=== PATIENT | female | born 1995 | race Caucasian/White ===

== ENCOUNTER 2017-07-01 20:17 | Emergency (ER) | payer MEDICAID, SELFPAY ==
[2017-07-01 20:37] VITALS: BP 137/99; PULSE 92; RESP 20; TEMP 36.8; O2SAT 97; BMI 30.9
--- NOTE | 2017-07-01 20:43 | XR_ITS ---
XR chest 2V INDICATION: Chest pain COMPARISON: None available FINDINGS: The cardiovascular structures are unremarkable. No mediastinal shift or hilar mass is evident. The lungs are well expanded and clear bilaterally. The costophrenic sulci are sharp. No significant bony anomalies are apparent. IMPRESSION: Negative chest.
--- NOTE | 2017-07-01 20:47 | HMH.EDCP ---
ED Disposition Clinical Impression: Pleurisy Disposition: Home, Self-Care Condition on Discharge: Good Instructions: DI for Pleurisy Additional Instructions: Please take Motrin every 6 hours as needed for chest pain. If not better follow-up with Dr Tom within 2 days. Referrals: Pritesh Tom MD [Staff Physician] - Forms: Work/School Release Time of Disposition: 22:04 - Critical Care Critical Care Time: No Attestation: On 07/01/17, the high probability of a clinically significant, sudden or life threatening deterioration of the following system(s) required my full and direct attention, intervention and personal management. The time I documented below is in addition to time spent performing reported procedures but includes the following listed in this critical care notation. Medical Decision Making - Medical Records Medical records reviewed: Yes: I reviewed the patient's medical records. - Edu Inquiry Pt receiving controlled substance: No Vital Signs: 07/01/17 20:37 07/01/17 22:13 Temperature 98.3 F 98.7 F Temperature Source Oral Oral Pulse Rate 85 Pulse Rate [Right Radial] 92 H Respiratory Rate 20 20 Blood Pressure 132/98 Blood Pressure [Right Arm] 137/99 Blood Pressure Mean [Right Arm] 111 Blood Pressure Position Sitting 02 Sat by Pulse Oximetry 97 - Lab Data Lab results reviewed: Yes: I reviewed the patient's lab results. Lab Results 07/01/17 20:40: Urine Color Yellow, Urine Appearance Clear, Urine pH 6.0, Ur Specific [place] >= 1.030, Urine Protein Negative, Urine Glucose (UA) Negative, Urine Ketones Negative, Urine Blood 1+, Urine Nitrate Negative, Urine Bilirubin Negative, Urine Urobilinogen 0.2, Ur Leukocyte Esterase Negative, Urine RBC 5-10, Urine WBC 3-5, Ur Squamous Epith Cells 5-10, Amorphous Sediment Trace, Urine Mucus 4+ 07/01/17 20:40: WBC 11.2, RBC 4.82, Hgb 13.2, Hct 40.4, MCV 83.8, MCH 27.5, MCHC 32.8, RDW 13.2, Plt Count 314, MPV 7.9, Neut % (Auto) 56.8, Lymph % (Auto) 29.5, [place] % (Auto) 5.7, Eos % (Auto) 7.5, Baso % (Auto) 0.5, Neut # (Auto) 6.4, Lymph # (Auto) 3.3, [place] # (Auto) 0.6, Eos # (Auto) 0.8 H, Baso # (Auto) 0.1 07/01/17 20:40: Urine HCG, Qual Negative 07/01/17 20:40: Sodium 143, Potassium 3.6, Chloride 106, Carbon Dioxide 28, Anion Gap 12.6, BUN 11, Creatinine 0.85, Estimated Creat Clear 136, Estimated GFR 85, Est GFR ( Amer) 103, Glucose 91, Calcium 8.8, Total Bilirubin 0.8, AST 13 L, ALT 23, Alkaline Phosphatase 89, Total Creatine Kinase 128, CK-MB (CK-2) 0.8, CK-MB (CK-2) Rel Index 0.6, Troponin I < 0.02, Total Protein 7.5, Albumin 4.0, Globulin 3.5 H, Albumin/Globulin Ratio 1.1 07/01/17 20:40: Urine Opiates Screen Negative, Ur Barbituates Screen Negative, Ur Phencyclidine Scrn Negative, Ur Amphetamines Screen Negative, U Methamphetamines Scrn Negative, U Benzodiazepines Scrn Negative, Urine Cocaine Screen Negative, U Marijuana (THC) Screen Negative Result diagrams: 07/01/17 20:40 07/01/17 20:40 Orders (Tests/Meds): ORDERS Category Date Time Status Chest XR 2 view (NOT portable) [XR chest 2V] Stat Exams 07/01/17 20:43 Taken - Radiology Data #1 Image(s): Chest Image Reviewed: Yes I reviewed the patient's radiology results, Yes I reviewed the patient's radiology image, Yes I discussed the image results w/the radiologist Preliminary Findings: Normal/NAD - ECG Data Tracing #1 I reviewed this ECG and interpreted as documented below: Heart rate 88, no acute ischemic changes ECG normal with no acute: arrhythmias, ischemia, conduction abnormalities, chamber hypertrophy Normal Sinus Rhythm: Yes ECG compared to prior tracings: there are no prior tracings available for comparison - Reevaluation(s) Time: 22:30 Reevaluation #1: Upon reevaluation patient appears medically stable, no acute distress, denying any further complaints, but insisting that she will need a work excuse for today. Advise patient to take [id number]
[2017-07-01 20:52] LABS: Microscopic, Urine URINE MICROSCOPIC (MICROSCOPIC)
[2017-07-01 20:56] LABS: Basophils # 0.1 K/mm3 (0-0.2); Basophils % 0.5 % (0.1-2.0); Eosinophils # 0.8 K/mm3 (0.0-0.4); Eosinophils % 7.5 % (0.1-12.0); Hematocrit 40.4 % (37.0-47.0); Hemoglobin 13.2 g/dL (12.2-16.2); Lymphocytes # 3.3 K/mm3 (0.7-4.5); Lymphocytes % 29.5 K/mm3 (10-50); Mean Corpuscular HGB Conc 32.8 g/dL (31.8-35.4); Mean Corpuscular Hemoglobin 27.5 pg (27.0-31.2); Mean Corpuscular Volume 83.8 fl (81-99); Mean Platelet Volume 7.9 fl (7.4-10.4); Monocytes # 0.6 K/mm3 (0.1-1.0); Monocytes % 5.7 % (1.7-9.3); Neutrophils # 6.4 K/mm3 (1.8-7.8); Neutrophils % 56.8 % (37.0-80.0); Platelet Count 314 K/mm3 (142-424); Red Blood Count 4.82 M/mm3 (4.20-5.40); Red Cell Distribution Width 13.2 % (11.5-17.5); White Blood Count 11.2 K/mm3 (4.5-13.0)
[2017-07-01 20:58] LABS: Appearance,Urine CLEAR (Clear); Bilirubin,Urine Negative (Negative); Blood, Urine 1+ (Negative); Color,Urine YELLOW (Yellow); Glucose,Urine (UA) Negative (Negative); Ketones,Urine Negative (Negative); Leukocyte Esterase,Urine Negative (Negative); Nitrate,Urine Negative (Negative); Protein,Urine Negative (Negative); Specific Gravity, Urine >= 1.030 (1.005-1.030); Urobilinogen,Urine 0.2 EU/dl (0.2)
[2017-07-01 20:59] LABS: Urine Pregnancy, HCG Qual. Negative (Negative)
[2017-07-01 21:02] LABS: Amorphous Sediment,Urine Trace /lpf; Mucus,Urine 4+ /lpf
[2017-07-01 21:03] LABS: Amphetamine/Metha Screen,Urine Negative ng/mL (<1000); Barbiturates Screen,Urine Negative ng/mL (<200); Benzodiazepines Screen,Urine Negative ng/mL (200); Cannabinoid Screen,Urine Negative ng/mL (<50); Cocaine Screen,Urine Negative ng/g (<300); Methadone Screen,Urine Negative ng/mL (<300); Opiate Screen,Urine Negative ng/mL (<300); Phencyclidine Screen,Urine Negative ng/mL (<25)
[2017-07-01 21:23] LABS: Alanine Aminotransferase 23 U/L (12-78); Albumin/Globulin Ratio 1.1 (1.1-1.8); Alkaline Phosphatase 89 U/L (46-116); Anion Gap 12.6 mEq/L (5-15); Aspartate Amino Transferase 13 U/L (15-37); Bilirubin,Total 0.8 mg/dL (0.2-1.0); Blood Urea Nitrogen 11 mg/dL (7-18); CKMB Relative Index 0.6 U/L (0-4.0); Calcium 8.8 mg/dL (8.5-10.1); Carbon Dioxide 28 mmol/L (21.0-32.0); Chloride 106 mmol/L (98-107); Creatine Kinase 128 U/L (26-192); Creatine Kinase MB 0.8 mg/ml (0.0-3.6); Creatinine Clearance Estimated 136 mL/min (0-300); Creatinine,Serum 0.85 mg/dL (0.55-1.02); Estimated Glomerular Filt Rate 85 ml/min (>60); GFR (African American) 103 ML/MIN (>60); Globulin 3.5 gm/dl (1.3-3.2); Glucose 91 mg/dL (74-106); Potassium 3.6 mmoL/L (3.5-5.1); Sodium 143 mmol/L (136-145); Total Protein,Serum 7.5 gm/dL (6.4-8.2); Troponin I < 0.02 ng/ml (0.00-0.06)
[2017-07-01 22:13] VITALS: BP 132/98; PULSE 85; RESP 20; TEMP 37.1; O2SAT 99
== END 2017-07-01 22:13 | disposition home or self-care (01) ==
LOC: UTC 20:26 → ER 20:37
PROVIDERS: Emergency Medicine; Emergency Provider Physician Assistant; PCP Pediatrics
DX: R09.1 Pleurisy (principal); R07.9 Chest pain, unspecified
CPT/HCPCS: 71046; 80053; 80305; 81001; 81025; 82550; 82553; 84484; 85025; 93005; 99282

== ENCOUNTER 2017-07-08 12:54 | Emergency (ER) | payer MEDICAID, SELFPAY ==
[2017-07-08 13:38] VITALS: BP 154/94; PULSE 97; RESP 20; TEMP 37.2; O2SAT 98; BMI 30.9
[2017-07-08 13:53] LABS: UTC Influenza A Antigen Negative (Negative); UTC Influenza B Antigen Negative (Negative); UTC Strep Screen (Rapid) Negative (Negative)
--- NOTE | 2017-07-08 13:59 | HMH.EDUTC ---
[facility] [place] Clinical Impression: Vomiting and diarrhea Sinusitis Qualifiers: Sinusitis location: frontal Chronicity: unspecified Qualified Code(s): J32.1 - Chronic frontal sinusitis Disposition: Home, Self-Care Condition on Discharge: Good Instructions: Sinusitis, Sinus Headache, DI for Sinusitis, DI for Nausea -- Adult Additional Instructions: Start antibiotic. Sinus infections may take 2-3 days to notice much improvement so be sure to use conservative measures as discussed for symptoms Flonase 2 spray in each nostril daily to help with nasal congestion, sinus an ear pressure/inflammation Lots of Fluids Sleep elevated Humidifer/vaporizer Prescriptions: Azithromycin [Z-Oswald 250mg Tab] 250 mg PO UD DOSE PK #6 tab Fluticasone Propionate [Flonase 50mcg nasal spray 16gm] 2 spr NS DAILY #1 bottle Ondansetron [Zofran 4mg ODT] 4 mg PO Q8H #10 tab.rapdis predniSONE [Prednisone 20mg Tab] 20 mg PO BID #10 tab Referrals: Concha Vivar [Primary Care Provider] - (24-48 hours if no improvement or worsening of symptoms) Forms: Work/School Release Time of Disposition: 14:30 Medical Decision Making - Medical Records Medical records reviewed: Yes: I reviewed the patient's medical records. - Edu Inquiry Pt receiving controlled substance: No Edu was queried for this patient: No Vital Signs: 07/08/17 13:38 Temperature 98.9 F Temperature Source Temporal Artery Scan Pulse Rate [Right Brachial] 97 H Respiratory Rate 20 Blood Pressure [Right Arm] 154/94 Blood Pressure Mean [Right Arm] 114 Blood Pressure Source [Right Arm] Automatic Cuff Blood Pressure Position [Right Arm] Sitting 02 Sat by Pulse Oximetry 98 Oxygen Delivery Method Room Air - Lab Data Lab results reviewed: Yes: I reviewed the patient's lab results. Lab Results 07/08/17 13:11: Influenza Type A Ag Negative, Influenza Type B Ag Negative, Strep Scn Rapid Clinic Negative Orders (Tests/Meds): ORDERS Category Date Time Status Strep Screen Confirmation Stat Micro 07/08/17 13:11 Re[place] [facility] [place] - General Stated complaint: nose stopped up, vomitting, sore throat Time Seen by Provider: 07/08/17 13:50 Mode of Arrival: Family Vehicle Source of Information: Patient Limitations: No Limitations Description of Symptoms (Recalled from Triage Doc. by RN): C/O SORE THROAT, VOMITING, CONGESTION, AND DIARRHEA HEENT Symptoms (Recalled from RN notes): Yes Resp Symptoms (Recalled from RN notes): Yes Skin Symptoms (Recalled from RN notes): No MS Symptoms (Recalled from RN notes): No Functional Status (Recalled from RN notes): N/A - History of Present Illness Provider Complaint: Patient states that she has been having pain and pressure above her eyes and feels like she is having drainage down the back of her throat State that she is also having eppisodes of nausea and vomiting along with diarrhea - Related Data Previous Rx's Medication Instructions Recorded Azithromycin [Z-Oswald 250mg Tab] 250 mg PO UD DOSE PK #6 tab 07/08/17 Fluticasone Propionate [Flonase 2 spr NS DAILY #1 bottle 07/08/17 50mcg nasal spray 16gm] Ondansetron [Zofran 4mg ODT] 4 mg PO Q8H #10 tab.rapdis 07/08/17 predniSONE [Prednisone 20mg 20 mg PO BID #10 tab 07/08/17 Tab] Allergies Allergy/AdvReac Type Severity Reaction Status Date / Time Penicillins Allergy Verified 07/01/17 20:42 - Worker's Comp Is this a Worker's Comp case?: No [facility] History I have reviewed the patient's past medical history: Yes Medical History: Denies:: Cancer, Diabetes Mellitus Type 1, Diabetes Mellitus Type 2, MRSA Amputation: No Fractures: No - Social History Smoking Status: Former smoker # Packs/Day (cigarettes): 1 Alcohol Intake: never - Psychiatric History Expresses thoughts of harming self/others: None Suicide Plan Description: No Plan ROS Obtained: Yes All systems reviewed & no additional complaints - Constitutional Constitutional: Reports
[2017-07-08 14:38] VITALS: BP 148/86; PULSE 90; RESP 20; TEMP 37.2; O2SAT 97
== END 2017-07-08 14:39 | disposition home or self-care (01) ==
PROVIDERS: Emergency Provider Nurse Practitioner; PCP Pediatrics
DX: J32.1 Chronic frontal sinusitis (principal)
CPT/HCPCS: 87804; 87880; 99202

== ENCOUNTER 2018-08-02 14:21 | Observation (INO) ==
--- NOTE | 2018-08-02 14:31 | Emergency Department Note ---
ED Disposition Clinical Impression: Miscarriage Disposition: Admitted as Observation Condition on Discharge: Fair Referrals: Provider,Referral, [Primary Care Provider] - - Critical Care Critical Care Time: No Attestation: On 08/02/18, the high probability of a clinically significant, sudden or life threatening deterioration of the following system(s) required my full and direct attention, intervention and personal management. The time I documented below is in addition to time spent performing reported procedures but includes the following listed in this critical care notation. Medical Decision Making - Edu Inquiry Pt receiving controlled substance: No Vital Signs: 08/02/18 14:28 08/02/18 14:47 08/02/18 14:52 Temperature 98.5 F Temperature Source Oral Pulse Rate [Left Radial] 112 H 113 H 110 H Respiratory Rate 16 Blood Pressure [Right Arm] 141/74 H 78/35 L 98/70 L Blood Pressure Mean [Right Arm] 96 49 79 Blood Pressure Source [Right Arm] Automatic Cuff Blood Pressure Position [Right Arm] Sitting Sitting Sitting 02 Sat by Pulse Oximetry 98 Oxygen Delivery Method Room Air 08/02/18 15:06 08/02/18 15:08 08/02/18 15:14 Temperature Temperature Source Pulse Rate [Left Radial] 95 H 88 Respiratory Rate Blood Pressure [Right Arm] 108/70 L 113/68 108/70 L Blood Pressure Mean [Right Arm] 82 83 82 Blood Pressure Source [Right Arm] Blood Pressure Position [Right Arm] Supine Supine 02 Sat by Pulse Oximetry Oxygen Delivery Method 08/02/18 15:18 08/02/18 15:29 08/02/18 16:27 Temperature Temperature Source Pulse Rate [Left Radial] 94 H 79 96 H Respiratory Rate Blood Pressure [Right Arm] 115/70 107/60 L 116/62 Blood Pressure Mean [Right Arm] 85 75 80 Blood Pressure Source [Right Arm] Automatic Cuff Blood Pressure Position [Right Arm] Sitting 02 Sat by Pulse Oximetry 98 Oxygen Delivery Method - Lab Data Lab Results 08/02/18 14:35: WBC 12.0 H, RBC 4.76, Hgb 13.8, Hct 39.2, MCV 82.3, MCH 29.0, MCHC 35.3, RDW 13.3, Plt Count 288, MPV 7.5, Neut % (Auto) 64.9, Lymph % (Auto) 23.7, [place] % (Auto) 4.2, Eos % (Auto) 6.8, Baso % (Auto) 0.5, Neut # (Auto) 7.8, Lymph # (Auto) 2.8, [place] # (Auto) 0.5, Eos # (Auto) 0.8 H, Baso # (Auto) 0.1 08/02/18 14:35: Sodium 138, Potassium 3.6, Chloride 104, Carbon Dioxide 23, Anion Gap 14.6, BUN 5 L, Creatinine 0.74, Estimated Creat Clear 169, Estimated GFR 99, Est GFR ( Amer) 120, Glucose 105, Calcium 8.8, Total Bilirubin 1.5 H, AST 9 L D, ALT 29, Alkaline Phosphatase 63, Total Protein 7.2, Albumin 3.8, Globulin 3.4 H, Albumin/Globulin Ratio 1.1 08/02/18 14:35: HCG, Quant 369 H Result diagrams: 08/02/18 14:35 08/02/18 14:35 Orders (Tests/Meds): ED MEDICATIONS Discontinued Medications Generic Name Dose Route Start Last Admin Trade Name Bob PRN Reason Stop Dose Admin Sodium Chloride 1,000 ml 08/02/18 14:50 08/02/18 15:09 Sod Chlor 0.9% 1000ml Bag IV 08/02/18 14:51 1,000 ml BOLUS ONE Administration ORDERS Category Date Time Status US OB transvaginal Stat Ultrasound 08/02/18 15:15 Taken - US Data US Images: Pelvis Findings Narrative: As per [facility] procedure, ultrasound report received from manometer technician: sac is gone. Mild endometrial thickening and small amount of tissue left. - Physician Consults Physician Consulted: Vinod Time: 15:05 Reason -: Obstetrical Eval/Care Comment/Response: Recommends transvaginal ultrasound if blood pressure improves. Call her back with results of ultrasound and CBC. Additional Consult: Vinod Time: 16:31 Reason -: Obstetrical Eval/Care Comment/Response: Admit to labor and delivery. Methergine 0.2 mg IM every 6 hours x4. H&H at 8 PM and in the morning. May eat and drink. Medical Decision Narrative: After my examination, the patient got up to go to the bathroom. She became pale, diaphoretic, complaining of dizziness and inability to hear, tingling. Hypotensive. Treated with IV fluid bolus and Trendelenburg with improvement. General Adult HPI - General Stated complaint: possible miscarriage Time Seen by Provider: 08/02/18 14:39 - History of Present Illness HPI narrative: 3, para 1, AB 1 female with a last menstrual period 11 weeks ago who has intrauterine demise, missed at 8 weeks by ultrasound. Seen here in this emergency department on Sunday 3 days ago for bleeding, diagnosis made at that time. Saw her FOOTWEAR STITCHER the next day. They recommended a D&C, but she said she wanted to give it a week to see if she would spontaneously miscarry. She says she stopped bleeding after her ER visit here on Sunday, but this morning began bleeding heavily, passing clots, bleeding down her leg whenever she moves around. She is having pelvic pain. She called her FOOTWEAR STITCHER and they told her to go to the emergency room. Her FOOTWEAR STITCHER is in [place] and she says that she did not have gas money to make it there and therefore came to this emergency room. She says that she needs to have anything done, she would like to have it done here. She is Rh- and was given RhoGam on Sunday. Last oral intake was at 11:30 AM. - Related Data Home Medications Medication Instructions Recorded Confirmed No Known Home Medications 06/25/18 08/02/18 Allergies Allergy/AdvReac Type Severity Reaction Status Date / Time Penicillins Allergy Verified 06/25/18 02:48 [facility] History - Hepatitis A Screen Attestation statement:: This patient has been screened for Hepatitis A risk factors. I have reviewed the patient's past medical history: Yes Medical History: Denies:: Cancer, Diabetes Mellitus Type 1, Diabetes Mellitus Type 2, Gastroesophageal Reflux Disease(GERD), Hypertension, MRSA Other Surgeries: Yes: Cholecystectomy, Other (Child .) Amputation: No Fractures: No - Social History Smoking Status: Current every day smoker Tobacco Type: cigarettes # Packs/Day (cigarettes): 1 Alcohol Intake: never Occupational Status: employed Household Members: significant other Family Hx:: Diabetes ROS Obtained: Yes All systems reviewed & no additional complaints - Constitutional Constitutional: Denies fever(s) - Genitourinary Female Genitourinary: Reports abnormal vaginal bleeding, Reports pelvic pain Physical Exam - General General appearance: alert, in no apparent distress - Head Head exam: atraumatic, normocephalic - Eye Eye exam: Present: normal appearance, EOMI - ENT ENT exam: Present: mucous membranes moist - Neck Neck exam: Present: normal inspection, trachea midline - Chest Chest inspection: Present: normal inspection, symmetric chest wall rise - Respiratory Respiratory exam: Present: normal lung sounds bilaterally. Absent: respiratory distress - Cardiovascular Cardiovascular exam: Present: regular rate, normal rhythm, normal heart sounds - Abdominal Exam Abdominal exam: Present: soft, tenderness. Absent: distention, guarding, rebound, rigidity Abdominal tenderness: Present: suprapubic - Neurological Exam Neurological exam: Present: alert, oriented X3 - Psychiatric Psychiatric exam: Present: normal affect, anxious - Skin Skin exam: Present: warm, dry
[2018-08-02 15:12] LABS: Basophils # 0.1 K/mm3 (0-0.2); Basophils % 0.5 % (0.1-2.0); Eosinophils # 0.8 K/mm3 (0.0-0.4); Eosinophils % 6.8 % (0.1-12.0); Hematocrit 39.2 % (37.0-47.0); Hemoglobin 13.8 g/dL (12.2-16.2); Lymphocytes # 2.8 K/mm3 (0.7-4.5); Lymphocytes % 23.7 % (10-50); Mean Corpuscular HGB Conc 35.3 g/dL (31.8-35.4); Mean Corpuscular Volume 82.3 fl (81-99); Mean Platelet Volume 7.5 fl (7.4-10.4); Monocytes # 0.5 K/mm3 (0.1-1.0); Monocytes % 4.2 % (1.7-9.3); Neutrophils # 7.8 K/mm3 (1.8-7.8); Neutrophils % 64.9 % (37.0-80.0); Platelet Count 288 K/mm3 (142-424); Red Blood Count 4.76 M/mm3 (4.20-5.40); Red Cell Distribution Width 13.3 % (11.5-17.5)
[2018-08-02 16:02] LABS: Albumin Level 3.8 gm/dL (3.4-5.0); Albumin/Globulin Ratio 1.1 (1.1-1.8); Anion Gap 14.6 mEq/L (5-15); Bilirubin,Total 1.5 mg/dL (0.2-1.0); Calcium 8.8 mg/dL (8.5-10.1); Globulin 3.4 gm/dl (1.3-3.2); Potassium 3.6 mmoL/L (3.5-5.1); Total Protein,Serum 7.2 gm/dL (6.4-8.2)
[2018-08-02 20:09] LABS: Basophils # 0.1 K/mm3 (0-0.2); Basophils % 0.4 % (0.1-2.0); Eosinophils # 0.4 K/mm3 (0.0-0.4); Eosinophils % 3.6 % (0.1-12.0); Hematocrit 33.7 % (37.0-47.0); Lymphocytes # 2.8 K/mm3 (0.7-4.5); Lymphocytes % 23.3 % (10-50); Mean Corpuscular HGB Conc 34.9 g/dL (31.8-35.4); Mean Corpuscular Volume 82.9 fl (81-99); Mean Platelet Volume 7.9 fl (7.4-10.4); Monocytes # 0.4 K/mm3 (0.1-1.0); Monocytes % 3.5 % (1.7-9.3); Neutrophils # 8.3 K/mm3 (1.8-7.8); Neutrophils % 69.2 % (37.0-80.0); Platelet Count 238 K/mm3 (142-424); Red Blood Count 4.07 M/mm3 (4.20-5.40); Red Cell Distribution Width 13.2 % (11.5-17.5); White Blood Count 11.9 K/mm3 (4.8-10.8)
[2018-08-02 20:39] LABS: Hemoglobin 11.8 g/dL (12.2-16.2)
[2018-08-03 07:25] LABS: Basophils # 0.1 K/mm3 (0-0.2); Basophils % 0.7 % (0.1-2.0); Eosinophils # 0.7 K/mm3 (0.0-0.4); Hematocrit 33.4 % (37.0-47.0); Hemoglobin 11.4 g/dL (12.2-16.2); Lymphocytes % 36.3 % (10-50); Mean Corpuscular HGB Conc 34.1 g/dL (31.8-35.4); Mean Corpuscular Hemoglobin 28.7 pg (27.0-31.2); Mean Corpuscular Volume 84.1 fl (81-99); Mean Platelet Volume 8.3 fl (7.4-10.4); Monocytes # 0.3 K/mm3 (0.1-1.0); Monocytes % 4.2 % (1.7-9.3); Neutrophils # 4.1 K/mm3 (1.8-7.8); Neutrophils % 49.7 % (37.0-80.0); Platelet Count 202 K/mm3 (142-424); Red Blood Count 3.97 M/mm3 (4.20-5.40); Red Cell Distribution Width 13.3 % (11.5-17.5); White Blood Count 8.2 K/mm3 (4.8-10.8)
--- NOTE | 2018-08-03 13:30 | Pharmacy Consult Notes ---
[facility] Pharmacy VTE Monitoring - Patient Demographics Admission date: 08/02/18 Report Date: 08/03/18 Time: 13:29 Allergies/Adverse Reactions: Patient Allergies Penicillins Allergy (Verified 06/25/18 02:48) Height: 1.63 m Weight: 88.904 kg Patient Problems: Current Active Problems (Updated 08/03/18 @ 13:23 by Bridgett Brock MD) with care elsewhere (Acute) Tobacco abuse (Acute) Anemia due to acute blood loss (Acute) Missed with demise before 20 completed weeks of gestation (Acute) Rh negative status during (Acute) Miscarriage (Acute) - VTE Risk Labs: VTE Related Lab Results Hgb 11.4 g/dL (12.2-16.2) L 08/03/18 07:15 Hct 33.4 % (37.0-47.0) L 08/03/18 07:15 Plt Count 202 K/mm3 (142-424) 08/03/18 07:15 BUN 5 mg/dL (7-18) L 08/02/18 14:35 Creatinine 0.74 mg/dL (0.55-1.02) 08/02/18 14:35 Estimated Creat Clear 169 mL/min (50-200) 08/02/18 14:35 Was VTE Risk Assessment Performed: Yes VTE Score: 0 VTE Risk Level: Very Low Risk - Prophylaxis VTE Prophylaxis Ordered?: Yes Types of VTE Prophylaxis: TEDS Knee High Location of Applied Device: Bilateral Lower Extremeties
--- NOTE | 2018-08-03 13:32 | History & Physical Report ---
*Admission Date: 08/02/18 *Chief complaint: vaginal bleeding in *History of present illness: 22 yo G1 with known SAB diagnosed 07/30/18 during ED visit for vaginal bleeding. care in [facility] but lives in [place] and presented to [facility] ED on bot h 07/30 and 08/02. After missed was confirmed via ultrasound on 07/30/18, she followed up with her Vault Maker in who wanted to schedule her for a D&C, however patient wanted to wait 1 week to see if the would pass spontaneously. On the morning of 08/02/18, she awoke approximately 11am with heavy vaginal bleeding that did not decrease over several hours and presented to [facility] ED. She had some vital sign changes with hypotension and tachycardia, and was given an immediate fluid bolus after 2 large bore IVs were started. Labs were ordered and she was sent to radiology for assessment with ultrasound. Radiology report is still pending, but verbal report confirmed no pole and no gestational sac identified in the uterus, indicating she had successfully passed all products of conception. Hgb on 08/02 was 13.8 (noted to be 15.1 on 07/30) and vitals had responded to fluid resuscitation, however patient and family were very concerned about the acuity and heaviness of the bleeding she had experienced, and she was admitted for 23 hour observation with serial labs. Methergine 0.2mg IM q 6 also ordered for 24 hours. She is Rh negative and received rhogam on 07/30/18. [facility] History I have reviewed the patient's past medical history: Yes Medical History: Denies:: Cancer, Diabetes Mellitus Type 1, Diabetes Mellitus Type 2, Gastroesophageal Reflux Disease(GERD), Hypertension, MRSA *Have you ever received a pneumonia vaccine?: No *Have you received a flu vaccine this season?: No Other Surgeries: Yes: Cholecystectomy, Other (Child .) Amputation: No Fractures: No - *Social History Smoking Status: Current every day smoker Tobacco Type: cigarettes # Packs/Day (cigarettes): 1 Alcohol Intake: never *Occupational Status:: employed Household Members: significant other *Travel in the last 8 weeks: None - Psychiatric History Expresses thoughts of harming self/others: None Suicide Plan Description: No Plan Family Hx:: Diabetes Para: 1 Review of Systems - Review of Systems CONSTITUTIONAL: no fever/chills HEENT: no oral lesions PULMONARY: no shortness of breath or difficulty breathing CV: no racing heart, palpitations or chest pain ABD: no abdominal pain, N/V : moderate vaginal bleeding SKIN: no new rash or skin lesions EXT: no edema NEURO: no mental status changes PSYCH: no current anxiety/depression Meds Home Medications Medication Instructions Recorded Confirmed Type No Known Home Medications 06/25/18 08/02/18 History Allergies Allergy/AdvReac Type Severity Reaction Status Date / Time Penicillins Allergy Verified 06/25/18 02:48 Exam Vital signs and Labs for Last 24 Hours: Temp Pulse Resp BP Pulse Ox 97.7 F 84 16 143/89 H 98 08/03/18 12:00 08/03/18 12:00 08/03/18 12:00 08/03/18 12:00 08/03/18 12:00 Laboratory Results - last 24 hr 08/02/18 14:35: WBC 12.0 H, RBC 4.76, Hgb 13.8, Hct 39.2, MCV 82.3, MCH 29.0, MCHC 35.3, RDW 13.3, Plt Count 288, MPV 7.5, Neut % (Auto) 64.9, Lymph % (Auto) 23.7, [place] % (Auto) 4.2, Eos % (Auto) 6.8, Baso % (Auto) 0.5, Neut # (Auto) 7.8, Lymph # (Auto) 2.8, [place] # (Auto) 0.5, Eos # (Auto) 0.8 H, Baso # (Auto) 0.1 08/02/18 14:35: Sodium 138, Potassium 3.6, Chloride 104, Carbon Dioxide 23, Anion Gap 14.6, BUN 5 L, Creatinine 0.74, Estimated Creat Clear 169, Estimated GFR 99, Est GFR ( Amer) 120, Glucose 105, Calcium 8.8, Total Bilirubin 1.5 H, AST 9 L D, ALT 29, Alkaline Phosphatase 63, Total Protein 7.2, Albumin 3.8, Globulin 3.4 H, Albumin/Globulin Ratio 1.1 08/02/18 14:35: HCG, Quant 369 H 08/02/18 19:53: WBC 11.9 H, RBC 4.07 L, Hgb 11.8 L D, Hct 33.7 L, MCV 82.9, MCH 29.0, MCHC 34.9, RDW 13.2, Plt Count 238, MPV 7.9, Neut % (Auto) 69.2, Lymph % (Auto) 23.3, [place] % (Auto) 3.5, Eos % (Auto) 3.6, Baso % (Auto) 0.4, Neut # (Auto) 8.3 H, Lymph # (Auto) 2.8, [place] # (Auto) 0.4, Eos # (Auto) 0.4, Baso # (Auto) 0.1 08/03/18 07:15: WBC 8.2 D, RBC 3.97 L, Hgb 11.4 L, Hct 33.4 L, MCV 84.1, MCH 28.7, MCHC 34.1, RDW 13.3, Plt Count 202, MPV 8.3, Neut % (Auto) 49.7, Lymph % (Auto) 36.3, [place] % (Auto) 4.2, Eos % (Auto) 9.0, Baso % (Auto) 0.7, Neut # (Auto) 4.1, Lymph # (Auto) 3.0, [place] # (Auto) 0.3, Eos # (Auto) 0.7 H, Baso # (Auto) 0.1 I & O for Last 24 hours: Intake & Output 08/01/18 08/02/18 08/03/18 08/04/18 11:59 11:59 11:59 11:59 Weight 196 lb Narrative: CONSTITUTIONAL: no acute distress HEENT: mucous membranes moist PULMONARY: breathing unlabored without audible wheezes CV: mild tachycardia; normal LE peripheral pulses ABD: soft, NT/ND, no guarding. Gravid uterus. : per ED note SKIN: no visible rash or lesions HEME: no lymphadenopathy EXT: no edema LEs NEURO: alert/oriented, no altered mental status PSYCH: appropriate mood and demeanor, with mild anxiety appropriate for the circumstances Assessment and Plan (1) with care elsewhere Current visit: Yes Status: Acute Category: Medical Code(s): Z34.90 - Encounter for supervision of normal , unspecified, unspecified trimester (2) Missed with demise before 20 completed weeks of gestation Current visit: Yes Status: Acute Category: Medical Code(s): O02.1 - Missed (3) Rh negative status during Current visit: Yes Status: Acute Category: Medical Code(s): O26.899 - Other specified related conditions, unspecified trimester; Z67.91 - Unspecified blood type, Rh negative (4) Tobacco abuse Current visit: Yes Status: Acute Category: Medical Code(s): Z72.0 - Tobacco use - Assessment and plan all Dx Assessment and Plan for all problems:: No indication of need for operative intervention at this time Admission 23 hour observation Serial vitals and labs Continue IV hydration, methergine 0.2mg IM q 6 x 4 doses S/P rhogam 07/30/18
--- NOTE | 2018-08-03 13:43 | Discharge Summary ---
General - General Admission date:: 08/02/18 Discharge date: 08/03/18 HPI HPI: 22 yo G1 with known SAB diagnosed 07/30/18 during ED visit for vaginal bleeding. care in [facility] but lives in [place] and presented to [facility] ED on bot h 07/30 and 08/02. After missed was confirmed via ultrasound on 07/30/18, she followed up with her Handy Worker in who wanted to schedule her for a D&C, however patient wanted to wait 1 week to see if the would pass spontaneously. On the morning of 08/02/18, she awoke approximately 11am with heavy vaginal bleeding that did not decrease over several hours and presented to [facility] ED. She had some vital sign changes with hypotension and tachycardia, and was given an immediate fluid bolus after 2 large bore IVs were started. Labs were ordered and she was sent to radiology for assessment with ultrasound. Radiology report is still pending, but verbal report confirmed no pole and no gestational sac identified in the uterus, indicating she had successfully passed all products of conception. Hgb on 08/02 was 13.8 (noted to be 15.1 on 07/30) and vitals had responded to fluid resuscitation, however patient and family were very concerned about the acuity and heaviness of the bleeding she had experienced, and she was admitted for 23 hour observation with serial labs. Methergine 0.2mg IM q 6 also ordered for 24 hours. She is Rh negative and received rhogam on 07/30/18. Hgb 08/02 pm: 11.8, Hgb 08/03: 11.4 Hospital Course Hospital Course: per HPI Rhogam Administration: Given (07/30/18) Objective Vital signs: Temp Pulse Resp BP Pulse Ox 97.7 F 84 16 143/89 H 98 08/03/18 12:00 08/03/18 12:00 08/03/18 12:00 08/03/18 12:00 08/03/18 12:00 Narrative: CONSTITUTIONAL: no acute distress HEENT: mucous membranes moist PULMONARY: breathing unlabored without audible wheezes CV: no tachycardia or visible JVD; normal LE peripheral pulses ABD: soft, NT/ND, no guarding : deferred SKIN: no visible rash or lesions EXT: no edema LEs NEURO: alert/oriented, no altered mental status PSYCH: appropriate mood and demeanor without visible anxiety/depression Results Labs on day of discharge: Labs from last 24 hours 08/03/18 08/02/18 08/02/18 07:15 19:53 14:35 WBC 8.2 D 11.9 H RBC 3.97 L 4.07 L Hgb 11.4 L 11.8 L D Hct 33.4 L 33.7 L MCV 84.1 82.9 MCH 28.7 29.0 MCHC 34.1 34.9 RDW 13.3 13.2 Plt Count 202 238 MPV 8.3 7.9 Neut % (Auto) 49.7 69.2 Lymph % (Auto) 36.3 23.3 [place] % (Auto) 4.2 3.5 Eos % (Auto) 9.0 3.6 Baso % (Auto) 0.7 0.4 Neut # (Auto) 4.1 8.3 H Lymph # (Auto) 3.0 2.8 [place] # (Auto) 0.3 0.4 Eos # (Auto) 0.7 H 0.4 Baso # (Auto) 0.1 0.1 Sodium Potassium Chloride Carbon Dioxide Anion Gap BUN Creatinine Estimated Creat Clear Estimated GFR Est GFR ( Amer) Glucose Calcium Total Bilirubin AST ALT Alkaline Phosphatase Total Protein Albumin Globulin Albumin/Globulin Ratio HCG, Quant 369 H 08/02/18 08/02/18 14:35 14:35 WBC 12.0 H RBC 4.76 Hgb 13.8 Hct 39.2 MCV 82.3 MCH 29.0 MCHC 35.3 RDW 13.3 Plt Count 288 MPV 7.5 Neut % (Auto) 64.9 Lymph % (Auto) 23.7 [place] % (Auto) 4.2 Eos % (Auto) 6.8 Baso % (Auto) 0.5 Neut # (Auto) 7.8 Lymph # (Auto) 2.8 [place] # (Auto) 0.5 Eos # (Auto) 0.8 H Baso # (Auto) 0.1 Sodium 138 Potassium 3.6 Chloride 104 Carbon Dioxide 23 Anion Gap 14.6 BUN 5 L Creatinine 0.74 Estimated Creat Clear 169 Estimated GFR 99 Est GFR ( Amer) 120 Glucose 105 Calcium 8.8 Total Bilirubin 1.5 H AST 9 L D ALT 29 Alkaline Phosphatase 63 Total Protein 7.2 Albumin 3.8 Globulin 3.4 H Albumin/Globulin Ratio 1.1 HCG, Quant DS: Diagnosis - Discharge Diagnosis (1) with care elsewhere Status: Acute (2) Missed with demise before 20 completed weeks of gestation Status: Acute (3) Rh negative status during Status: Acute (4) Anemia due to acute blood loss Status: Acute (5) Tobacco abuse Status: Acute Discharge Plan - Patient Discharge Instructions ACTIVITY: Continue current activity DIET: regular diet - Follow up Plan Disposition: Home, Self-Detention Medications: Home Medications Medication Instructions Recorded Confirmed Type No Known Home Medications 06/25/18 08/02/18 History Prescriptions/Medication Reconciliation: Continued No Known Home Medications
== END 2018-08-03 14:10 | disposition home or self-care (01) ==
LOC: ER 14:21 → OB 16:56 → INTOOBSV 17:30 → OB 17:31
PROVIDERS: ADMIT Obstetrics & Gynecology; ATTEND Obstetrics & Gynecology
CPT/HCPCS: 36415; 76817; 80053; 84702; 85025; 96365; 96372; 99284; G0378

== ENCOUNTER 2020-01-14 16:21 | Emergency (ER) | payer MEDICAID, SELFPAY ==
[2020-01-14 17:01] VITALS: BP 135/91; PULSE 87; RESP 18; TEMP 36.8; O2SAT 99; BMI 34.8
--- NOTE | 2020-01-14 17:29 | HMH.EDUTC ---
[facility] [place] Disposition Clinical Impression: Exposure to COVID-19 virus, Viral syndrome Disposition: Home, Self-Care Condition on Discharge: Good Instructions: DI for Viral Syndrome, Preventing the Spread of Coronavirus Discharge Instructions Additional Instructions: Drink plenty of fluids. Take tylenol or ibuprofen for pain or fever. Follow up with your regular doctor. GO TO THE ER FOR ANY WORSENING SYMPTOMS FOLLOW THE DIRECTIONS ON THE COVID-19 HAND OUT THAT WE GAVE YOU REGARDING SELF-ISOLATION UNTIL YOU KNOW YOUR COVID-19 RESULTS Referrals: PCP,No [Primary Care Provider] - Time of Disposition: 17:32 Medical Decision Making - Medical Records Medical records reviewed: No: I reviewed the patient's medical records. - Edu Inquiry Pt receiving controlled substance: No Vital Signs: 01/14/20 17:01 01/14/20 17:44 Temperature 98.2 F 98.2 F Temperature Source Oral Oral Pulse Rate 87 Pulse Rate [Radial] 87 Respiratory Rate 18 18 Blood Pressure 135/91 H Blood Pressure [Right Arm] 135/91 H Blood Pressure Mean [Right Arm] 105 Blood Pressure Source Automatic Cuff Blood Pressure Source [Right Arm] Automatic Cuff Blood Pressure Position Sitting Blood Pressure Position [Right Arm] Sitting 02 Sat by Pulse Oximetry 99 Oxygen Delivery Method Room Air Room Air [facility] [place] HPI - General Stated complaint: running nose,body pain, wants COVID testing Time Seen by Provider: 01/14/20 17:05 Mode of Arrival: Ambulatory Source of Information: Patient Limitations: No Limitations Description of Symptoms (Recalled from Triage Doc. by RN): covid test HEENT Symptoms (Recalled from RN notes): No Resp Symptoms (Recalled from RN notes): No Skin Symptoms (Recalled from RN notes): No MS Symptoms (Recalled from RN notes): No Functional Status (Recalled from RN notes): wnl - History of Present Illness Provider Complaint: She states that she has had a mild cough and mild chilling for the past 3 days. She thinks she is having allergy symptoms, but she was exposed to covid recently. - Related Data Home Medications Medication Instructions Recorded Confirmed No Known Home Medications 06/25/18 08/02/18 Allergies Allergy/AdvReac Type Severity Reaction Status Date / Time Penicillins Allergy Verified 06/25/18 02:48 - Worker's Comp Is this a Worker's Comp case?: No [facility] History - Hepatitis A Screen Drug use history?: No High risk sexual behaviors?: No History of sexually transmitted infection?: No Currently employed?: No Childcare worker?: No Do you have indoor plumbing?: Yes Do you have electricity?: Yes Attestation statement:: This patient has been screened for Hepatitis A risk factors. I have reviewed the patient's past medical history: Yes Medical History: Denies:: Cancer, Diabetes Mellitus Type 1, Diabetes Mellitus Type 2, Gastroesophageal Reflux Disease(GERD), Hypertension, MRSA Other Surgeries: Yes: Cholecystectomy, Other (Child .) Amputation: No Fractures: No - Social History Smoking Status: Current every day smoker Tobacco Type: cigarettes # Packs/Day (cigarettes): 1 Alcohol Intake: never Occupational Status: employed Housing: house Household Members: significant other Family Hx:: Diabetes ROS Obtained: Yes All systems reviewed & no additional complaints - Constitutional Constitutional: Reports chills, Reports fever(s), Reports poor appetite, Reports malaise - Eyes Eyes: Denies eye discharge - ENT Ears, Nose, Mouth, and Throat: Reports as per HPI - Cardiovascular Cardiovascular: Denies chest pain - Respiratory Respiratory: Yes chest congestion, Yes cough Physical Exam - General General appearance: alert, in no apparent distress - Head Head exam: atraumatic, normocephalic, normal inspection - Eye Eye exam: Present: normal appearance, PERRL, EOMI - ENT ENT exam: Present: normal exam, normal oropharynx, mucous membranes moist, TM's normal bilateral
[2020-01-14 17:44] VITALS: BP 135/91; PULSE 87; RESP 18; TEMP 36.8; O2SAT 99
== END 2020-01-14 17:45 | disposition home or self-care (01) ==
PROVIDERS: Emergency Provider Nurse Practitioner Family
DX: Z20.828 Contact with and (suspected) exposure to other viral communicable diseases (principal); B34.9 Viral infection, unspecified; F17.210 Nicotine dependence, cigarettes, uncomplicated
CPT/HCPCS: 99201; U0003

== ENCOUNTER 2020-02-17 19:42 | Emergency (ER) | payer MEDICAID, SELFPAY ==
[2020-02-17 20:07] VITALS: BP 144/82; PULSE 84; RESP 15; TEMP 37.3; O2SAT 98; BMI 30.9
--- NOTE | 2020-02-17 20:16 | HMH.EDUTC ---
[facility] [place] Clinical Impression: Viral syndrome, Bronchitis Disposition: Home, Self-Care Condition on Discharge: Good Instructions: Preventing the Spread of Coronavirus Discharge Instructions Additional Instructions: Drink plenty of fluids. Take tylenol for pain or fever. Take the medications as directed. Follow up with your regular doctor. GO TO THE ER FOR ANY WORSENING SYMPTOMS Prescriptions: Ondansetron [Zofran 4mg ODT] 4 mg PO Q8HP PRN #9 tab.rapdis PRN Reason: Nausea Transmission Status: Received by [facility] [employer] # Azithromycin [Z-Oswald 250mg Tab*] 250 mg PO UD DOSE PK #6 tab Transmission Status: Received by [facility] [employer] # Referrals: PCP,No [Primary Care Provider] - Forms: Work/School Release Time of Disposition: 20:27 Medical Decision Making - Medical Records Medical records reviewed: No: I reviewed the patient's medical records. - Edu Inquiry Pt receiving controlled substance: No Vital Signs: 02/17/20 20:07 Temperature 99.2 F Temperature Source Oral Pulse Rate [Right Brachial] 84 Respiratory Rate 15 Blood Pressure [Right Arm] 144/82 H Blood Pressure Mean [Right Arm] 102 Blood Pressure Source [Right Arm] Automatic Cuff Blood Pressure Position [Right Arm] Sitting 02 Sat by Pulse Oximetry 98 Oxygen Delivery Method Room Air [facility] [place] - General Stated complaint: cough Time Seen by Provider: 02/17/20 20:16 Mode of Arrival: Ambulatory Source of Information: Patient Limitations: No Limitations Description of Symptoms (Recalled from Triage Doc. by RN): PATIENT C/O LOW-GRADE FEVER, CONGESTION, NASAL DRAINAGE, AND COUGH WITH CLEAR SPUTUM HEENT Symptoms (Recalled from RN notes): Yes Resp Symptoms (Recalled from RN notes): Yes Skin Symptoms (Recalled from RN notes): No MS Symptoms (Recalled from RN notes): No Functional Status (Recalled from RN notes): WNL - History of Present Illness Provider Complaint: She states that for the past 2 days she has been having cough, chest congestion, headache, sore scratchy throat, body aches and feeling very bad. She denies any known exposure to COVID. - Related Data Previous Rx's Medication Instructions Recorded Azithromycin [Z-Oswald 250mg Tab*] 250 mg PO UD DOSE PK #6 tab 02/17/20 Ondansetron [Zofran 4mg ODT] 4 mg PO Q8HP PRN #9 tab.rapdis 02/17/20 Allergies Allergy/AdvReac Type Severity Reaction Status Date / Time Penicillins Allergy Verified 06/25/18 02:48 - Worker's Comp Is this a Worker's Comp case?: No [facility] [place] History - Hepatitis A Screen Drug use history?: No High risk sexual behaviors?: No History of sexually transmitted infection?: No Currently employed?: No Childcare worker?: No Do you have indoor plumbing?: Yes Do you have electricity?: Yes Attestation statement:: This patient has been screened for Hepatitis A risk factors. I have reviewed the patient's past medical history: Yes Medical History: Denies:: Cancer, Diabetes Mellitus Type 1, Diabetes Mellitus Type 2, Gastroesophageal Reflux Disease(GERD), Hypertension, MRSA Other Surgeries: Yes: Cholecystectomy, Other (Child .) Amputation: No Fractures: No - Social History Smoking Status: Current every day smoker Tobacco Type: cigarettes # Packs/Day (cigarettes): 1 Alcohol Intake: never Occupational Status: other Housing: house Household Members: significant other Family Hx:: Diabetes ROS Obtained: Yes All systems reviewed & no additional complaints - Constitutional Constitutional: Reports chills, Reports fever(s), Reports poor appetite, Reports malaise - Eyes Eyes: Denies eye discharge - ENT Ears, Nose, Mouth, and Throat: Reports as per HPI - Cardiovascular Cardiovascular: Denies chest pain - Respiratory Respiratory: Yes as per HPI - Gastrointestinal Gastrointestingal: Reports: nausea. Denies: abdominal pain, diarrhea, vomiting Physical Exam - General General appearance: alert, in no a
[2020-02-17 20:31] VITALS: BP 144/82; PULSE 84; RESP 15; TEMP 37.3; O2SAT 98
[2020-02-19 17:12] LABS: Covid-19 Nasal PCR Sendout Lex Not Detected
== END 2020-02-17 20:32 | disposition home or self-care (01) ==
PROVIDERS: Emergency Provider Nurse Practitioner Family
DX: B34.9 Viral infection, unspecified (principal); J40 Bronchitis, not specified as acute or chronic; Z72.0 Tobacco use
CPT/HCPCS: 99201; U0004

== ENCOUNTER 2020-06-23 23:05 | Emergency (ER) | payer MEDICAID, SELFPAY ==
[2020-06-23 23:07] VITALS: BP 128/91; PULSE 88; RESP 14; TEMP 36.6; O2SAT 97; BMI 30.9
--- NOTE | 2020-06-23 23:35 | XR_ITS ---
PROCEDURE: XR CHEST 2V CLINICAL HISTORY: congestion COMPARISON: CR CXR2V XR chest 2V from 07/01/2017 FINDINGS: The cardiomediastinal silhouette and pulmonary vascularity are within normal limits. The lungs are clear without infiltrates, suspicious nodules, or pleural effusions. No acute bony abnormalities. IMPRESSION: No acute findings. Dictated by: Mp Cali MD 06/24/2020 05:24 Mp Cali MD in [facility] 06/24/2020 05:24
[2020-06-23 23:43] LABS: Basophils # 0.1 K/mm3 (0-0.2); Eosinophils # 0.2 K/mm3 (0.0-0.4); Eosinophils % 1.9 % (0.1-12.0); Hematocrit 45.4 % (37.0-47.0); Hemoglobin 14.7 g/dL (12.2-16.2); Lymphocytes # 2.1 K/mm3 (0.7-4.5); Mean Corpuscular HGB Conc 32.4 g/dL (31.8-35.4); Mean Corpuscular Hemoglobin 28.5 pg (27.0-31.2); Mean Platelet Volume 7.6 fl (7.4-10.4); Monocytes # 0.8 K/mm3 (0.1-1.0); Monocytes % 9.3 % (1.7-9.3); Neutrophils # 5.6 K/mm3 (1.8-7.8); Neutrophils % 63.9 % (37.0-80.0); Platelet Count 266 K/mm3 (142-424); Red Blood Count 5.16 M/mm3 (4.20-5.40); Red Cell Distribution Width 13.6 % (11.5-17.5); White Blood Count 8.8 K/mm3 (4.8-10.8)
--- NOTE | 2020-06-23 23:48 | HMH.EDALLER ---
ED Disposition Clinical Impression: Sinusitis Qualifiers: Sinusitis location: maxillary Chronicity: acute Recurrence: not specified as recurrent Qualified Code(s): J01.00 - Acute maxillary sinusitis, unspecified Disposition: Home, Self-Care Condition on Discharge: Good Instructions: DI for Sinusitis Additional Instructions: use meds and see pcp and senior enterprise architect for follow up Prescriptions: Loratadine [Claritin 10mg Tablet] 10 mg PO DAILY #30 tab Transmission Status: Pending to [facility] # predniSONE [Prednisone 20mg Tab] 20 mg PO BID #10 tab Transmission Status: Pending to [facility] # Referrals: PCP,Nicci [Primary Care Provider] - Gregory Figueroa [Referring] - - Critical Care Critical Care Time: No Attestation: On 06/23/20, the high probability of a clinically significant, sudden or life threatening deterioration of the following system(s) required my full and direct attention, intervention and personal management. The time I documented below is in addition to time spent performing reported procedures but includes the following listed in this critical care notation. Medical Decision Making - Medical Records Medical records reviewed: Yes: I reviewed the patient's medical records. - Edu Inquiry Pt receiving controlled substance: No Vital Signs: 06/23/20 23:07 Temperature 97.8 F Temperature Source Oral Pulse Rate [Right] 88 Respiratory Rate 14 Blood Pressure [Right Arm] 128/91 H Blood Pressure Mean [Right Arm] 103 02 Sat by Pulse Oximetry 97 - Lab Data Lab results reviewed: Yes: I reviewed the patient's lab results. Lab Results 06/23/20 23:29: Urine HCG, Qual Negative 06/23/20 23:30: WBC 8.8, RBC 5.16, Hgb 14.7, Hct 45.4, MCV 88.0, MCH 28.5, MCHC 32.4, RDW 13.6, Plt Count 266, MPV 7.6, Neut % (Auto) 63.9, Lymph % (Auto) 24.0, [place] % (Auto) 9.3, Eos % (Auto) 1.9, Baso % (Auto) 1.0, Neut # (Auto) 5.6, Lymph # (Auto) 2.1, Luce # (Auto) 0.8, Eos # (Auto) 0.2, Baso # (Auto) 0.1 06/23/20 23:30: Sodium 138, Potassium 3.4 L, Chloride 107, Carbon Dioxide 24, Anion Gap 10.4, BUN 7, Creatinine 0.70, Estimated Creat Clear 161, Estimated GFR 104, Est GFR ( Amer) 125, Glucose 114 H, Calcium 9.2, Total Bilirubin 1.2, AST 34, ALT 34, Alkaline Phosphatase 84, C-Reactive Protein 9.8 H, Total Protein 8.0, Albumin 4.7, Globulin 3.3 H, Albumin/Globulin Ratio 1.4 Result diagrams: 06/23/20 23:30 06/23/20 23:30 Orders (Tests/Meds): ED MEDICATIONS Generic Name Dose Route Start Last Admin Trade Name Freq PRN Reason Stop Dose Admin Sodium Chloride 1,000 mls @ 999 mls/hr 06/23/20 23:45 06/23/20 23:40 Sod Chlor 0.9% 1000ml Bag IV 06/24/20 00:45 999 mls/hr .Q1H1M FELICIANO Administration Sodium Chloride 8 ml 06/23/20 23:36 Sodium Chloride 0.9% 10ml Vial IV 07/23/20 23:35 NEEDED PRN dilute pepcid Discontinued Medications Generic Name Dose Route Start Last Admin Trade Name Freq PRN Reason Stop Dose Admin Famotidine 20 mg 06/23/20 23:36 06/23/20 23:40 Famotidine 20mg/2ml Vial IV 06/23/20 23:37 20 mg ONCE ONE Administration Ketorolac Tromethamine 30 mg 06/23/20 23:36 06/23/20 23:40 Ketorolac 30mg/Ml Vial IV 06/23/20 23:37 30 mg ONCE ONE Administration Ondansetron HCl 4 mg 06/23/20 23:36 06/23/20 23:40 Ondansetron 4mg/2ml Vial IV 06/23/20 23:37 4 mg ONCE ONE Administration ORDERS Category Date Time Status Chest XR 2 view (NOT portable) [XR chest 2V] Stat Exams 06/23/20 23:35 Taken XR sinus min 3V Stat Exams 06/23/20 23:52 Taken C-Reactive Protein Stat Lab 06/23/20 23:30 Results Complete Blood Count Auto Diff Stat Lab 06/23/20 23:30 Results Comprehensive Metabolic Panel Stat Lab 06/23/20 23:30 Results Erythrocyte Sedimentation Rate Stat Lab 06/23/20 23:30 Results Procalcitonin Stat Lab 06/23/20 23:30 Results - Radiology Data #1 Image(s): Chest, Other (sinus) Image Reviewed: Yes
[2020-06-23 23:50] LABS: Urine Pregnancy, HCG Qual. Negative (Negative)
--- NOTE | 2020-06-23 23:52 | XR_ITS ---
PROCEDURE: XR SINUS MIN 3V CLINICAL INDICATION: congestion COMPARISON: No exams were available for comparison FINDINGS: No sinus air-fluid levels evident. There is mild haziness of the maxillary sinuses on both sides which may be due to some mild mucosal thickening. Frontal, sphenoid, and ethmoid sinuses have an unremarkable appearance. No acute bony findings. Other findings:None. IMPRESSION: Mild haziness of the maxillary sinuses suggesting mild mucosal thickening. No air-fluid levels apparent that would indicate acute sinusitis Dictated by: Mp Cali MD 06/24/2020 05:23 Mp Cali MD in [facility] 06/24/2020 05:23
[2020-06-23 23:53] LABS: Alanine Aminotransferase 34 U/L (12-78); Albumin Level 4.7 g/dl (3.5-5.0); Albumin/Globulin Ratio 1.4 (1.1-1.8); Alkaline Phosphatase 84 U/L (38-126); Anion Gap 10.4 mEq/L (5-15); Aspartate Amino Transferase 34 U/L (14-36); Bilirubin,Total 1.2 mg/dl (0.2-1.3); Blood Urea Nitrogen 7 mg/dl (7-17); Calcium 9.2 mg/dl (8.4-10.2); Carbon Dioxide 24 mmol/L (22.0-30.0); Chloride 107 mmol/L (98-107); Creatinine Clearance Estimated 161 mL/min (50-200); Estimated Glomerular Filt Rate 104 ml/min (>60); GFR (African American) 125 ML/MIN (>60); Globulin 3.3 g/dL (1.3-3.2); Glucose 114 mg/dl (74-100); Potassium 3.4 mmoL/L (3.5-5.1); Sodium 138 mmol/L (136-145)
[2020-06-23 23:58] LABS: C-Reactive Protein 9.8 mg/L (0-4)
[2020-06-24 00:12] LABS: Procalcitonin 0.062 ng/mL (0.0-2.0)
[2020-06-24 00:20] LABS: Erythrocyte Sedimentation Rate 15 mm/hr (0-20)
[2020-06-24 00:27] VITALS: BP 130/71; PULSE 74; RESP 14; TEMP 36.7; O2SAT 98
== END 2020-06-24 00:29 | disposition home or self-care (01) ==
PROVIDERS: Emergency Provider Emergency Medicine
DX: J01.00 Acute maxillary sinusitis, unspecified (principal); Z88.0 Allergy status to penicillin; F17.210 Nicotine dependence, cigarettes, uncomplicated
CPT/HCPCS: 70220; 71046; 80053; 81025; 84145; 85025; 85651; 86140; 96375; 99283; J2405

== ENCOUNTER → 2020-08-11 14:27 | Outpatient (CLI) | payer MEDICAID, SELFPAY ==
[2020-08-11 15:42] LABS: HCG,Quantitative 4895 mIU/ml (0-5.42)
== END ==
PROVIDERS: Visit Provider Obstetrics & Gynecology
DX: Z34.90 Encounter for supervision of normal pregnancy, unspecified, unspecified trimester (principal)
CPT/HCPCS: 36415; 84702

== ENCOUNTER → 2021-09-15 16:05 | Outpatient (CLI) | payer MEDICAID, SELFPAY ==
[2021-09-15 17:23] LABS: HCG,Quantitative 1155 mIU/ml (0-5.42)
== END ==
PROVIDERS: Visit Provider Obstetrics & Gynecology
DX: Z32.01 Encounter for pregnancy test, result positive (principal)
CPT/HCPCS: 36415; 84702

== ENCOUNTER → 2021-09-21 12:33 | Outpatient (CLI) | payer MEDICAID, SELFPAY ==
[2021-09-21 13:14] LABS: HCG,Quantitative 5273 mIU/ml (0-5.42)
== END ==
PROVIDERS: Visit Provider Obstetrics & Gynecology
DX: Z34.90 Encounter for supervision of normal pregnancy, unspecified, unspecified trimester (principal)
CPT/HCPCS: 36415; 84702

== ENCOUNTER → 2021-11-08 10:17 | Outpatient (CLI) | payer MEDICAID, SELFPAY ==
--- NOTE | 2021-11-08 10:22 | US_ITS ---
FINAL REPORT TECHNIQUE: Sonographic images of the pelvis were obtained. CLINICAL HISTORY: Dates FINDINGS: The uterus is anteverted and anteflexed. The placenta is anterior which is marginal. There is a single living intrauterine gestation. [place]-rump length measures 6.75 cm which correlates to a 13 weeks 0 days. Activity and heart beat is noted. Heart rate measures 161 bpm. Femur length is 0.95 cm which corresponds to 12 weeks 6 days. Neither ovary is visualized. IMPRESSION: Single, living, intrauterine gestation with an average ultrasound age of 13 weeks 0 days. Anterior placenta is marginal. Recommend close follow-up. Reviewed, Interpreted and Dictated by Harleen Dawkins MD Transcribed by Micki Seay Authenticated and [facility]
== END ==
PROVIDERS: Visit Provider Obstetrics & Gynecology
DX: Z34.90 Encounter for supervision of normal pregnancy, unspecified, unspecified trimester (principal)
CPT/HCPCS: 76801

== ENCOUNTER → 2021-11-15 10:35 | Outpatient (CLI) | payer MEDICAID, SELFPAY ==
[2021-11-15 11:17] LABS: Basophils # 0.1 K/mm3 (0-0.2); Basophils % 0.6 % (0.1-2.0); Eosinophils # 0.2 K/mm3 (0.0-0.4); Eosinophils % 2.1 % (0.1-12.0); Hematocrit 39.5 % (37.0-47.0); Hemoglobin 13.3 g/dL (12.2-16.2); Lymphocytes # 1.8 K/mm3 (0.7-4.5); Lymphocytes % 17.8 % (10-50); Mean Corpuscular HGB Conc 33.6 g/dL (31.8-35.4); Mean Corpuscular Hemoglobin 28.4 pg (27.0-31.2); Mean Corpuscular Volume 84.6 fl (81-99); Mean Platelet Volume 8.4 fl (7.4-10.4); Monocytes # 0.5 K/mm3 (0.1-1.0); Monocytes % 4.5 % (1.7-9.3); Neutrophils # 7.4 K/mm3 (1.8-7.8); Platelet Count 322 K/mm3 (142-424); Red Blood Count 4.67 M/mm3 (4.20-5.40); Red Cell Distribution Width 14.3 % (11.5-17.5); White Blood Count 9.8 K/mm3 (4.8-10.8)
[2021-11-16 06:14] LABS: HIV Screen 4th Generation wRfx Non Reactive (Non Reactive); Hepatitis B Surface Antigen Negative (Negative); Hepatitis C Antibody 0.1 s/co ratio (0.0-0.9); Rubella Antibodies, IgG 2.17 index (Immune >0.99)
[2021-11-16 08:29] LABS: Progesterone 13.8 ng/mL (.)
[2021-11-16 11:25] LABS: Rapid Plasma Reagin Ab Titer Non Reactive (NonRea<1:1)
== END ==
PROVIDERS: Visit Provider Obstetrics & Gynecology
DX: Z34.90 Encounter for supervision of normal pregnancy, unspecified, unspecified trimester (principal)
CPT/HCPCS: 36415; 84144; 85025; 86592; 86703; 86762; 86850; 87086; 87088; 87186; 87340; 87380; G0432

== ENCOUNTER → 2021-12-06 10:21 | Outpatient (CLI) | payer MEDICAID, SELFPAY | PROVIDERS: Visit Provider Obstetrics & Gynecology | DX: Z34.90 Encounter for supervision of normal pregnancy, unspecified, unspecified trimester (principal) | CPT/HCPCS: 87086 ==

== ENCOUNTER → 2021-12-27 10:15 | Outpatient (CLI) | payer MEDICAID, SELFPAY ==
--- NOTE | 2021-12-27 10:15 | US_ITS ---
FINAL REPORT CLINICAL HISTORY: 20 week anatomy scan FINDINGS: There is a single live intrauterine gestation. Presentation is breech. The cervix is closed and measures 4.0 cm. Placenta is anterior, grade 1. movement is noted. Three-vessel cord with satisfactory umbilical cord insertion. Four-chamber heart is noted. brain and ventricles are unremarkable. Chest and diaphragm are unremarkable. ABDOMEN: Both kidneys are unremarkable. Stomach is unremarkable. SPINE: No anomalies identified. Both arms and legs noted. AMNIOTIC FLUID: Appropriate amount. MEASUREMENTS: ULTRASOUND AGE: 20 weeks 0 days. GESTATION AGE: 20 weeks 0 days. ESTIMATED WEIGHT: 336 g GROWTH PERCENTILE: 54% LMP percentile BPD: 4.6 cm corresponding with 20 weeks 0 days. OFD: 6.0 cm corresponding with 20 weeks 4 days. HC: 16.9 cm corresponding with 19 weeks 4 days. AC: 15.4 cm corresponding with 20 weeks 4 days. FL: 3.2 cm corresponding with 19 weeks 6 days. CEREBELLUM: 2.0 cm corresponding with 20 weeks 1 days. HUMERUS: 3.1 cm corresponding with 20 weeks 2 days. HC/AC: 1.1 CI: 77% FL/BPD: 69% FL/AC: 21% IMPRESSION: Single living IUP with an ultrasound age of 20 weeks 0 days. No anomalies noted. Reviewed, Interpreted and Dictated by Nik Lance III, MD Transcribed by Micki Seay Authenticated and . [facility]
== END ==
PROVIDERS: Visit Provider Obstetrics & Gynecology
DX: Z34.90 Encounter for supervision of normal pregnancy, unspecified, unspecified trimester (principal); Z3A.20 20 weeks gestation of pregnancy
CPT/HCPCS: 76811

== ENCOUNTER → 2022-01-30 10:38 | Outpatient (CLI) | payer MEDICAID, SELFPAY ==
--- NOTE | 2022-01-30 10:42 | ECG_ITS ---
APPROVED REPORT Exam: Resting ECG HR:88 bpm ECG Measurements Heart Rate 88 AXES MD 163 P 43 QRSd 94 QRS 76 QT 329 T -7 QTc 374 Conclusion SINUS RHYTHM NONSPECIFIC T-WAVE ABNORMALITY ABNORMAL ECG UNCONFIRMED REPORT Electronically signed by : Zachary Sánchez MD 01/30/2022 21:22:11
[2022-01-30 12:35] LABS: Chloride 107 mmol/L (98-107); Sodium 136 mmol/L (136-145)
[2022-01-30 12:36] LABS: Potassium 3.6 mmoL/L (3.5-5.1)
[2022-01-30 12:38] LABS: Alanine Aminotransferase 12 U/L (12-78); Alkaline Phosphatase 82 U/L (38-126); Aspartate Amino Transferase 16 U/L (14-36); Blood Urea Nitrogen 2 mg/dl (7-17); Estimated Glomerular Filt Rate 194 ml/min (>60); GFR (African American) 235 ML/MIN (>60)
[2022-01-30 12:39] LABS: Albumin Level 3.2 g/dl (3.5-5.0); Albumin/Globulin Ratio 1.3 (1.1-1.8); Anion Gap 12.6 mEq/L (5-15); Calcium 8.3 mg/dl (8.4-10.2); Carbon Dioxide 20 mmol/L (22.0-30.0); Globulin 2.5 g/dL (1.3-3.2); Glucose 71 mg/dl (74-100); Total Protein,Serum 5.7 g/dl (6.3-8.2)
[2022-01-30 12:42] LABS: Bilirubin,Total 0.1 mg/dl (0.2-1.3)
[2022-01-30 13:07] LABS: Thyroid Stimulating Hormone 1.42 uIU/mL (0.465-4.68)
[2022-01-30 13:50] LABS: Vitamin B12 217 pg/mL (239-931)
[2022-01-31 16:07] LABS: Anticardiolipin Ab,IgA,Qn <9 APL U/mL (0-11)
[2022-02-01 15:20] LABS: Beta-2 Glycoprotein I Ab, IgM <9 (0-32)
[2022-02-02 17:58] LABS: APTT 25.4 sec (.); Anti-Cardiolipin Antibody IgG <10 GPL (.); Anti-Cardiolipin Antibody IgM <10 MPL (.); Beta-2 Glycoprotein I Ab, IgA <10 SAU (.); Beta-2 Glycoprotein I Ab, IgG <10 SGU (.); Beta-2 Glycoprotein I Ab, IgM <10 SMU (.); Hexagonal Phase Phospholipid 0 sec (.); INR 0.9 ratio (.); Prothrombin Time 9.8 sec (.); Thrombin Time 15.1 sec (.)
[2022-03-01 09:23] LABS: Antinuclear Antibodies (ANA) NEGATIVE
== END ==
PROVIDERS: Visit Provider Nurse Practitioner Family
DX: R42 Dizziness and giddiness (principal); R55 Syncope and collapse; Z34.90 Encounter for supervision of normal pregnancy, unspecified, unspecified trimester; H93.13 Tinnitus, bilateral; N96 Recurrent pregnancy loss; R51.9 Headache, unspecified; Z86.39 Personal history of other endocrine, nutritional and metabolic disease
CPT/HCPCS: 36415; 80053; 82607; 82746; 84443; 85597; 85598; 85610; 85613; 85670; 85730; 86038; 86146; 86147; 86225; 86235; 93005; 93270

== ENCOUNTER 2022-02-16 12:29 | Outpatient (CLI) | payer MEDICAID, SELFPAY ==
[2022-02-16 12:56] LABS: Basophils # 0.1 K/mm3 (0-0.2); Basophils % 0.4 % (0.1-2.0); Eosinophils # 0.4 K/mm3 (0.0-0.4); Eosinophils % 2.8 % (0.1-12.0); Hematocrit 38.2 % (37.0-47.0); Hemoglobin 12.5 g/dL (12.2-16.2); Lymphocytes # 1.7 K/mm3 (0.7-4.5); Lymphocytes % 11.6 % (10-50); Mean Corpuscular HGB Conc 32.8 g/dL (31.8-35.4); Mean Corpuscular Hemoglobin 29.7 pg (27.0-31.2); Mean Corpuscular Volume 90.4 fl (81-99); Mean Platelet Volume 8.9 fl (7.4-10.4); Monocytes # 0.7 K/mm3 (0.1-1.0); Neutrophils # 11.9 K/mm3 (1.8-7.8); Neutrophils % 80.3 % (37.0-80.0); Platelet Count 257 K/mm3 (142-424); Red Blood Count 4.22 M/mm3 (4.20-5.40); Red Cell Distribution Width 14.1 % (11.5-17.5); White Blood Count 14.9 K/mm3 (4.8-10.8)
[2022-02-16 13:40] VITALS: BP 118/75; PULSE 97; RESP 18; O2SAT 98
== END 2022-02-16 13:40 | disposition home or self-care (01) ==
PROVIDERS: PCP Obstetrics & Gynecology; Visit Provider Obstetrics & Gynecology
DX: Z34.90 Encounter for supervision of normal pregnancy, unspecified, unspecified trimester (principal)
CPT/HCPCS: 36415; 85025; 96372; J2790

== ENCOUNTER 2022-04-10 15:58 | Outpatient (CLI) | payer MEDICAID, SELFPAY ==
[2022-04-10 16:10] VITALS: BP 151/89; PULSE 89; RESP 17; TEMP 36.3; O2SAT 97; BMI 38.4
[2022-04-10 16:37] VITALS: BMI 38.4
[2022-04-10 17:00] LABS: Microscopic, Urine URINE MICROSCOPIC (MICROSCOPIC)
[2022-04-10 17:03] LABS: Appearance,Urine CLEAR (Clear); Bilirubin,Urine Negative (Negative); Blood, Urine 3+ (Negative); Color,Urine YELLOW (Yellow); Glucose,Urine (UA) Negative (Negative); Ketones,Urine Negative (Negative); Leukocyte Esterase,Urine TRACE (Negative); Nitrate,Urine POSITIVE (Negative); PH,Urine 6.5 (5.0-8.5); Protein,Urine 3+ (Negative); Specific Gravity, Urine >= 1.030 (1.005-1.030); Urobilinogen,Urine 0.2 EU/dl (0.2)
[2022-04-10 17:10] VITALS: BP 131/93; PULSE 111; RESP 18; TEMP 36.4; O2SAT 97
[2022-04-10 17:16] LABS: Barbiturates Screen,Urine Negative ng/ml (<200)
[2022-04-10 17:17] LABS: Amphetamine/Metha Screen,Urine Negative ng/ml (<1000); Benzodiazepines Screen,Urine Negative ng/ml (<200)
[2022-04-10 17:18] LABS: Methadone Screen,Urine Negative ng/ml (<300)
[2022-04-10 17:19] LABS: Cannabinoid Screen,Urine Negative ng/ml (<50); Cocaine Screen,Urine Negative ng/ml (<300)
[2022-04-10 17:20] LABS: Opiate Screen,Urine Negative ng/ml (<300)
[2022-04-10 17:21] LABS: Phencyclidine Screen,Urine Negative ng/ml (<25)
[2022-04-10 17:30] VITALS: BP 133/73; RESP 18
[2022-04-10 18:30] LABS: Bacteria,Urine 4+ /lpf
== END 2022-04-10 18:54 | disposition home or self-care (01) ==
LOC: OBOUT 15:59 → OB 16:00
PROVIDERS: Referring Provider Obstetrics & Gynecology; Visit Provider Obstetrics & Gynecology
DX: O47.03 False labor before 37 completed weeks of gestation, third trimester (principal); Z3A.34 34 weeks gestation of pregnancy
CPT/HCPCS: 59025; 80305; 81001; 87086; 87088; 87186; 96360; 96365; G0463

== ENCOUNTER → 2022-04-20 09:00 | Outpatient (CLI) | payer MEDICAID, SELFPAY | PROVIDERS: Visit Provider Obstetrics & Gynecology | DX: Z34.90 Encounter for supervision of normal pregnancy, unspecified, unspecified trimester (principal) | CPT/HCPCS: 86403 ==

== ENCOUNTER → 2022-04-21 08:26 | Outpatient (CLI) | payer MEDICAID, SELFPAY ==
[2022-04-21 08:52] LABS: Glucose,Fasting 117 mg/dl (74-100)
--- NOTE | 2022-04-21 08:52 | US_ITS ---
FINAL REPORT CLINICAL HISTORY: lga FINDINGS: There is a single live intrauterine gestation. Presentation is cephalic. Placenta is anterior, grade 2. Heart rate is 135 beats per minute. The fetus is active. HAILEY: 19.95 cm MEASUREMENTS: ULTRASOUND AGE: 37 weeks 6 days. GESTATION AGE: 36 weeks 3 days. ESTIMATED WEIGHT: 3382 g GROWTH PERCENTILE: 90% LMP percentile BPD: 9.4 cm corresponding with 30 weeks 2 days. OFD: 11.4 cm corresponding with 38 weeks 5 days. HC: 32.8 cm corresponding with 37 weeks 2 days. AC: 34.9 cm corresponding with 38 weeks 6 days. FL: 7.1 cm corresponding with 36 weeks 4 days. HC/AC: 0.94 CI: 83% FL/BPD: 76% FL/AC: 20% IMPRESSION: Single living IUP with an ultrasound age of 37 weeks 6 days. HAILEY of 19.95 cm Reviewed, Interpreted and Dictated by Ashley White MD Transcribed by Micki Seay Authenticated and [facility]
[2022-04-21 10:19] LABS: Glucose 1 Hour 173 mg/dL (74-100)
== END ==
PROVIDERS: PCP Obstetrics & Gynecology; Visit Provider Nurse Practitioner Obstetrics & Gynecology
DX: Z34.90 Encounter for supervision of normal pregnancy, unspecified, unspecified trimester (principal); O36.60X0 Maternal care for excessive fetal growth, unspecified trimester, not applicable or unspecified
CPT/HCPCS: 36415; 76816; 82951

== ENCOUNTER 2022-04-22 03:51 | Inpatient (IN) | payer MEDICAID, SELFPAY ==
[2022-04-22] VITALS (21 sets, daily range): BP systolic 125–142; BP diastolic 66–88; PULSE 78–108; RESP 16–18; TEMP 36.1–36.9; O2SAT 96–99; BMI 39.8
[2022-04-22 01:30] LABS: Microscopic, Urine URINE MICROSCOPIC (MICROSCOPIC)
[2022-04-22 01:33] LABS: Appearance,Urine SL CLOUDY (Clear); Blood, Urine 2+ (Negative); Color,Urine YELLOW (Yellow); Glucose,Urine (UA) Negative (Negative); Ketones,Urine Negative (Negative); Leukocyte Esterase,Urine TRACE (Negative); Nitrate,Urine Negative (Negative); Protein,Urine TRACE (Negative); Specific Gravity, Urine >= 1.030 (1.005-1.030)
[2022-04-22 01:36] LABS: Bilirubin,Urine Negative (Negative)
[2022-04-22 01:37] LABS: Squamous Epithelial Cell,Urine 20-50 #/hpf (0-5)
[2022-04-22 01:47] LABS: Barbiturates Screen,Urine Negative ng/ml (<200)
[2022-04-22 01:48] LABS: Amphetamine/Metha Screen,Urine Negative ng/ml (<1000); Benzodiazepines Screen,Urine Negative ng/ml (<200)
[2022-04-22 01:49] LABS: Cannabinoid Screen,Urine Negative ng/ml (<50)
[2022-04-22 01:50] LABS: Cocaine Screen,Urine Negative ng/ml (<300); Methadone Screen,Urine Negative ng/ml (<300)
[2022-04-22 01:51] LABS: Opiate Screen,Urine Negative ng/ml (<300)
[2022-04-22 01:52] LABS: Phencyclidine Screen,Urine Negative ng/ml (<25)
--- NOTE | 2022-04-22 03:37 | PC.NURSE ---
Surgery team called in, spoke with Jennifer Samuels [place].
--- NOTE | 2022-04-22 03:42 | PC.NURSE ---
Spoke with Dr. Boykin.
--- NOTE | 2022-04-22 04:09 | EXP.HP ---
History of Present Illness *Admission Date: 04/22/22 *Reason for visit:: 36 weeks , active labor, request for *History of present illness: She is a 26-year-old 6 para 2 aborta 3 who is 36 and 4 weeks gestational age. She came in having a few contractions. She received a bolus of fluid and the contractions have settled but she is having contractions still every 6 to 7 minutes. She is 5 to 6 cm dilated. She has requested a because she had 1/4 degree tear at the time of her first delivery and last delivery showed a small baby. This most recent ultrasound showed a large baby at the 90th centile and she does not want to have another fourth degree tear so she would like to have a . Nonstress test is reactive. I examined her myself and she is 5 to 6 cm dilated [facility] Disclaimer: The information contained in this section may have been updated after the patient was seen, as this information can be updated by other users. Surgical History Hx of cholecystectomy Family History Diabetes FHx: mental illness Cancer Social History Smoking Status: Former smoker second hand exposure: Yes alcohol intake: never substance use type: denies use current occupational status: unemployed Travel in the last 8 weeks: None household members: spouse housing: apartment marital status: number of children: 2 Review of Systems Review of Systems Review of systems:: pertinent systems reviewed and negative unless documented below Meds Home Medications and Allergies Home Medications Medication Instructions Recorded Confirmed Type ferrous sulfate 325 mg (65 mg 325 mg PO DAILY #30 tabs 11/15/21 04/20/22 Rx iron) tablet prenat.vits,artemio,sop-iiqd-ldnzd 1 tab PO DAILY #30 tabs 11/15/21 04/20/22 Rx hydroxyzine pamoate 25 mg capsule 25 mg PO BID PRN 01/10/22 04/20/22 History (Vistaril) sertraline 100 mg tablet 100 mg PO DAILY 01/10/22 04/20/22 History promethazine 12.5 mg tablet 12.5 mg PO Q4-6H PRN nausea and 02/13/22 04/20/22 Rx vomiting #20 tabs ondansetron 4 mg disintegrating 4 mg PO Q6H PRN nausea and 02/27/22 04/20/22 Rx tablet vomiting #20 tabs New Prescriptions to Start Prescriptions: Allergies Allergy/AdvReac Type Severity Reaction Status Date / Time Penicillins Allergy Verified 04/20/22 09:32 Exam Data for Last 24 hours Vital signs and Labs for Last 24 Hours: Temp Pulse Resp BP Pulse Ox 98.4 F 79 18 139/80 99 04/22/22 01:30 04/22/22 01:30 04/22/22 01:30 04/22/22 01:30 04/22/22 01:30 Laboratory Results - last 24 hr 04/22/22 01:22: Urine Color Yellow, Urine Appearance Sl cloudy, Urine pH 6.0, Ur Specific [place] >= 1.030, Urine Protein Trace, Urine Glucose (UA) Negative, Urine Ketones Negative, Urine Blood 2+, Urine Nitrate Negative, Urine Bilirubin Negative, Urine Urobilinogen 1.0, Ur Leukocyte Esterase Trace, Urine RBC 10-20, Urine WBC 5-10, Ur Squamous Epith Cells 20-50 04/22/22 01:22: Urine Opiates Screen Negative, Urine Methadone Screen Negative, Ur Barbituates Screen Negative, Ur Phencyclidine Scrn Negative, Ur Amphetamines Screen Negative, U Benzodiazepines Scrn Negative, Urine Cocaine Screen Negative, U Marijuana (THC) Screen Negative I & O for Last 24 hours: Intake & Output 04/19/22 04/20/22 04/21/22 04/22/22 11:59 11:59 11:59 11:59 Weight 232 lb Constitutional Constitutional: no acute distress *Routine HEENT Exam Head: Present normocephalic Eye: Present EOMI and PERRL ENT: Present mucous membranes moist *Routine Neck Exam Neck: Present supple; Absent lymphadenopathy *Routine Respiratory Exam Respiratory: Present CTA bilaterally *Routine Cardiovascular Exam Cardiovascular: Present RRR *Routine Abdominal Exam Abdominal: Present soft and normoactive
[2022-04-22 04:10] LABS: Coronavirus 19, PCR Not Detected (NotDetected); Influenza A, PCR Not Detected (NotDetected); Influenza B, PCR Not Detected (NotDetected)
[2022-04-22 04:17] LABS: Basophils # 0.1 K/mm3 (0-0.2); Basophils % 0.6 % (0.1-2.0); Eosinophils # 0.2 K/mm3 (0.0-0.4); Eosinophils % 1.5 % (0.1-12.0); Hematocrit 36.9 % (37.0-47.0); Hemoglobin 11.9 g/dL (12.2-16.2); Lymphocytes % 14.1 % (10-50); Mean Corpuscular HGB Conc 32.3 g/dL (31.8-35.4); Mean Corpuscular Hemoglobin 26.9 pg (27.0-31.2); Mean Corpuscular Volume 83.3 fl (81-99); Monocytes # 0.6 K/mm3 (0.1-1.0); Monocytes % 4.4 % (1.7-9.3); Neutrophils # 11.2 K/mm3 (1.8-7.8); Neutrophils % 79.4 % (37.0-80.0); Platelet Count 240 K/mm3 (142-424); Red Blood Count 4.43 M/mm3 (4.20-5.40); Red Cell Distribution Width 15.1 % (11.5-17.5); White Blood Count 14.1 K/mm3 (4.8-10.8)
[2022-04-22 04:32] LABS: Chloride 108 mmol/L (98-107); Potassium 3.7 mmoL/L (3.5-5.1); Sodium 136 mmol/L (136-145)
[2022-04-22 04:35] LABS: Anion Gap 11.7 mEq/L (5-15); Blood Urea Nitrogen 3 mg/dl (7-17); Carbon Dioxide 20 mmol/L (22.0-30.0); Creatinine Clearance Estimated 357 mL/min (50-200); Estimated Glomerular Filt Rate 194 ml/min (>60); GFR (African American) 235 ML/MIN (>60); Glucose 96 mg/dl (74-100)
[2022-04-22 05:11] LABS: Cord Blood PH 7.28 (7.35-7.45)
--- NOTE | 2022-04-22 05:35 | EXP.OP.NOTE ---
Date of procedure: 04/22/22 Pre-op Diagnosis:: Term , previous fourth degree laceration. Active labor. Post-op Diagnosis:: Term , previous fourth degree laceration, active labor Procedure performed:: Primary lower segment transverse section Surgeon:: Osbaldo Moses MD Cancer Genetic Counselor(s):: Dr. Boykin [place] WORKER:: Arvind Boswell Anesthesia: spinal Estimated blood loss (mL): 1,000 Clinical Note:: She is a 26-year-old 6 para 2 aborta 3 who was 36 and 3 weeks gestational age. She came in with complaints of some contractions. She received a fluid bolus to stop her contractions but despite this progressed to 5 to 6 cm. As result of that we elected perform a primary lower segment transverse section since she was in labor. She had requested a because her first child was large and she had 4th degree perineal laceration. Her last baby was quite small and she elected to deliver that vaginally. This time she requested a primary lower segment transverse section since the baby was 90th centile. The risks and benefits of surgery were discussed with the patient prior to surgery. Operative findings:: She delivered a liveborn male child at 4:58 AM on the morning of April 22, 2022. The baby had Apgars of 7 at 1 minute and 8 at 5 minutes. Ovaries and tubes appeared normal. Operative note:: She was taken to the operating room where spinal anesthesia was found be adequate. She was prepped and draped in normal sterile fashion in the supine position. A Mejía catheter was in the bladder. A Pfannenstiel skin incision was made with knife then carried through to the underlying layer of fascia with cautery. The fascia was opened in the midline with cautery and extended laterally using Wellington scissors. Latrell clamps were applied to the superior aspect of the fascial incision which was tented up and the underlying rectus muscles dissected off using cautery. The Larsen clamps were then applied to the inferior aspect of the fascial incision which in a similar fashion was tented up and the underlying rectus muscles dissected off using cautery. The rectus muscles were then in the midline, the peritoneum identified, and entered bluntly. An Jelani retractor was then inserted into the abdominal cavity. Transverse incision was made through the uterine muscle above the bladder flap to the amnion. This incision was then extended superiorly and inferiorly using the fingers as traction. The amnion was entered sharply with knife. There was clear amniotic fluid. The infant's head was then delivered atraumatically. A loose nuchal cord was then reduced. This was followed by the anterior shoulder and the rest of the 's body atraumatically. The oropharynx and nasopharynx were bulb suctioned. The infant was vigorous so we allowed the cord to continue to pulsate for approximately 1 minute. The cord was then doubly clamped and cut. The was then handed off to Dr. Sánchez who assigned Apgars of 7 at 1 minute and 8 at 5 minutes. We then obtained cord blood. Using gentle traction on the cord and fundal massage I was able to easily deliver the placenta intact. It had a normal three-vessel cord. The uterus was then cleared of clots and debris . The uterine incision was then closed using running 0 Vicryl suture in a locked fashion. A second layer of the same suture was used to imbricate the first layer. A third layer of running locked 0 Vicryl suture was then used to completely imbricate the uterus. The bladder peritoneum was then closed using running 2-0 Vicryl suture in a locked fashion. I placed a large piece of Surgicel along the incision. The gutters and cul-de-sac were then cleared of clots and debris . Once again hemostasis was assured. The fascia was closed using running #1 Vicryl suture. The subcutaneous tissues were then irrigated with warm water followed by closure Bobby's fascia using running 2-0 Monocryl suture. The skin was c
--- NOTE | 2022-04-22 05:46 | EXP.ANES.CKL ---
[facility] Disclaimer: The information contained in this section may have been updated after the patient was seen, as this information can be updated by other users. Surgical History Hx of cholecystectomy Family History Diabetes FHx: mental illness Cancer Social History Smoking Status: Former smoker second hand exposure: Yes alcohol intake: never substance use type: denies use current occupational status: employed Travel in the last 8 weeks: None household members: spouse housing: apartment marital status: number of children: 2 [facility] Anesthesia Checklist Patient Identification Patient Identification: Arm Band and Verbal (Name & ) Structural Data Admitted From: Inpatient Planned Operative Procedure/s: section Consent for Planned Operative Procedure(s) Verified: Yes Verified Documents: Surgical Consent NPO Status Verified Time NPO: 16:00 Chart Verification Results Verified: CBC Airway Assessment C-Spine Mobility Assessed: Yes TMJ Mobility Assessed: Yes Dentition: Good Dentition Neurological Assessment Level of Consciousness: Awake, Alert and Appropriate Anesthesia Plan Anesthesia Risk discussed: Yes ASA Class: II Anesthesia Type: Spinal
--- NOTE | 2022-04-22 05:47 | P.PNANES_ITS ---
[facility] Anesthesia Record Part I Anesthesia Record I Intake, IV Amount: 900 Estimated blood loss (mL): 1,000 Urine output (mL): 150 Blood Pressure: 139/88 SaO2: 98 Pulse Rate: 98 Respiratory Rate: 16 Temperature: 97.0 F Patient is:: Awake and Stable Stable to PACU at:: 09:44
--- NOTE | 2022-04-22 06:24 | SUR.PHASEI ---
late entries.... 0558-Dr. Moses at bedside, notified of QBL from OR of 1351.6, Dr. Moses ordered for QBL protocol to be initiated-start 2nd iv, place 2 units PRBCs on hold, vs q5min and administer Methergine 0.2mg IM xonce 0600-Methergine 0.2mg IM to right thigh administered as ordered per DR. Moses for QBL protocol 0606-#18 ga IV started to left forearm and saline locked, lab notified to place 2 units PRBCs on hold 0614-detailed report called to Tuan,RN 0617-pt transported to OB room 277 w/eduardo hand rails up and left in care of JERI Dickerson with bed locked in lowest position, vss, pt stable, family/baby at bedside
--- NOTE | 2022-04-22 06:32 | SUR.OPER ---
late entry... 0458-viable male born at this time
[2022-04-22 10:26] LABS: Microscopic,Cath URINE MICROSCOPIC (MICROSCOPIC)
[2022-04-22 11:08] LABS: Appearance,Urine/Cath CLEAR (Clear); Bilirubin,Cath Negative (Negative); Blood, Urine/Cath Negative (Negative); Color,Urine/Cath YELLOW (Yellow); Glucose,Urine/Cath (UA) Negative (Negative); Ketones,Urine/Cath Negative (Negative); Leukocyte Esterase,Cath Negative (Negative); Nitrate,Cath Negative (Negative); Protein,Urine/Cath Negative (Negative); Specific Gravity, Urine/Cath >= 1.030 (1.005-1.030); Urobilinogen,Cath 0.2 EU/dl (0.2)
[2022-04-22 11:26] LABS: Bacteria,Urine/Cath 4+ /lpf; Squamous Epithelial Ur./Cath Occasional #/hpf (0-5); WBC,Urine/Cath Occasional #/hpf (0-3)
[2022-04-22 11:27] LABS: CA Oxalate Crystals,Ur/Cath 1+ /lpf; RBC,Urine/Cath Occasional # /hpf (0-3)
[2022-04-22 13:02] LABS: POC Glucose,Bedside 93 (70-110)
--- NOTE | 2022-04-22 14:51 | HMH.PHAINT1 ---
Pharmacy Intervention Comments: MEDICATION RECONCILIATION COMPLETED ON PATIENT USING EXTERNAL FILL HISTORY FROM PHARMACY. -FROILAN FISHER, BILLIED
[2022-04-23 07:41] LABS: Hematocrit 29.9 % (37.0-47.0)
--- NOTE | 2022-04-23 09:45 | P.PN_ITS ---
Subjective *Date: 04/23/22 *Time: 09:45 Interval history: She is doing very well this morning. She is 24 hours post . Her pain is reasonably well controlled. She is breast-feeding. Her lochia is normal. Her hemoglobin is stable. Medical Exam Vital signs and Labs for Last 24 Hours: Vital Signs Pulse BP 04/22/22 11:10 90 138/79 04/22/22 10:55 83 129/77 04/22/22 10:40 89 125/74 04/22/22 10:25 95 H 129/66 04/22/22 09:55 95 H 132/70 Laboratory Results - last 24 hr 04/22/22 04:45: Urine Color Yellow, Urine Appearance Clear, Urine pH 6.0, Ur Specific [place] >= 1.030, Urine Protein Negative, Urine Glucose (UA) Negative, Urine Ketones Negative, Urine Blood Negative, Urine Nitrate Negative, Urine Bilirubin Negative, Urine Urobilinogen 0.2, Ur Leukocyte Esterase Negative, Urine RBC Occasional, Urine WBC Occasional, Ur Squamous Epith Cells Occasional, Calcium Oxalate Crystal 1+, Urine Bacteria 4+ A 04/22/22 09:14: Screen Negative, Baby's Rh Status Positive, Rhogam Infusion Rhogam release 04/22/22 12:48: POC Glucose 93 04/23/22 07:20: Hgb 10.0 L, Hct 29.9 L I & O for Labs for Last 24 Hours: Intake & Output 04/20/22 04/21/22 04/22/22 04/23/22 11:59 11:59 11:59 11:59 Intake Total 900 / 900 Balance 900 / 900 Weight 231 lb 15.985 oz Microbiology Reports for the Last 24 Hours: Microbiology 04/22/22 04:45 Urine,Catheterized Urine Culture - Preliminary Head: Present atraumatic and normocephalic Neck: Present normal inspection Respiratory: Present normal respiratory effort GI: Absent distention or tenderness Assessment and Plan *Assessment and plan (1) Rh negative status during : Status: Acute Category: Medical Code(s): O26.899 - Other specified related conditions, unspecified trimester; Z67.91 - Unspecified blood type, Rh negative (2) Large for gestational age fetus affecting management of mother, antepartum: Status: Acute Category: Medical Code(s): O36.60X0 - Maternal care for excessive growth, unspecified trimester, not applicable or unspecified (3) BMI over 35: Status: Acute Category: Medical (4) History of fourth degree perineal laceration: Status: Acute Category: Medical Code(s): Z87.59 - Personal history of other complications of , childbirth and the puerperium (5) delivery delivered: Status: Acute Category: Medical Code(s): O82 - Encounter for delivery without indication Plan She has received her RhoGAM and she is doing well this morning. Her pain is well controlled and she is breast-feeding. We will plan to discharge her tomorrow.
--- NOTE | 2022-04-24 13:15 | EXP.DC.SUM ---
General Admission date:: 04/22/22 HPI HPI HPI: (Per admission H&P): She is a 26-year-old 6 para 2 aborta 3 who is 36 and 4 weeks gestational age. She came in having a few contractions. She received a bolus of fluid and the contractions have settled but she is having contractions still every 6 to 7 minutes. She is 5 to 6 cm dilated. She has requested a because she had 1/4 degree tear at the time of her first delivery and last delivery showed a small baby. This most recent ultrasound showed a large baby at the 90th centile and she does not want to have another fourth degree tear so she would like to have a . Nonstress test is reactive. I examined her myself and she is 5 to 6 cm dilated Hospital Course Hospital Course Hospital Course: Postop course uneventful She is discharged home on POD #2 in stable condition She is ambulating and voiding without difficulty She is tolerating a regular diet Lochia is appropriate and she is asymptomatic with csoyc-rx-iporrad anemia Pain control is sufficient s/p Rhogam prophylaxis Exam Data for Last 24 hours Vital signs and Labs for Last 24 Hours: Temp Pulse Resp BP Pulse Ox 98.1 F 90 17 138/79 97 04/22/22 06:20 04/22/22 11:10 04/22/22 09:10 04/22/22 11:10 04/22/22 09:10 Laboratory Results - last 24 hr 04/22/22 04:45: Urine Color Yellow, Urine Appearance Clear, Urine pH 6.0, Ur Specific [place] >= 1.030, Urine Protein Negative, Urine Glucose (UA) Negative, Urine Ketones Negative, Urine Blood Negative, Urine Nitrate Negative, Urine Bilirubin Negative, Urine Urobilinogen 0.2, Ur Leukocyte Esterase Negative, Urine RBC Occasional, Urine WBC Occasional, Ur Squamous Epith Cells Occasional, Calcium Oxalate Crystal 1+, Urine Bacteria 4+ A I & O for Last 24 hours: Intake & Output 04/22/22 04/23/22 04/24/22 04/25/22 11:59 11:59 11:59 11:59 Intake Total 900 / 900 Balance 900 / 900 Weight 231 lb 15.985 oz Microbiology Reports for the Last 24 Hours: Microbiology 04/22/22 04:45 Urine,Catheterized Urine Culture - Preliminary Gram Negative Rods Constitutional Constitutional: no acute distress *Routine HEENT Exam Head: Present normocephalic Eye: Absent conjunctival icterus or scleral injection ENT: Present mucous membranes moist *Routine Neck Exam Neck: Present supple *Routine Respiratory Exam Respiratory: Present CTA bilaterally *Routine Cardiovascular Exam Cardiovascular: Present RRR *Routine Abdominal Exam Abdominal: Present soft; Absent tenderness or distended *Routine Rectal Exam Patient deferred: visual exam and digital exam *Routine Exam Patient deferred: external exam Comments: Fundus firm below umbilicus *Routine Extremities Exam Extremities: Present edema *Routine Skin Exam Skin: Present intact and dry Comments: Incision intact without erythema or purulent drainage *Routine Neurological Exam Neurological: Present alert and oriented X3 Routine Psychiatric Exam Psychiatric: Present normal affect; Absent depressed Results Data Completed and Pending Labs on day of discharge: Labs from last 24 hours 04/22/22 04:45 Urine Color Yellow Urine Appearance Clear Urine pH 6.0 Ur Specific [place] >= 1.030 Urine Protein Negative Urine Glucose (UA) Negative Urine Ketones Negative Urine Blood Negative Urine Nitrate Negative Urine Bilirubin Negative Urine Urobilinogen 0.2 Ur Leukocyte Esterase Negative Urine RBC Occasional Urine WBC Occasional Ur Squamous Epith Cells Occasional Calcium Oxalate Crystal 1+ Urine Bacteria 4+ A Preliminary micro results at discharge 04/22/22 04:45 Urine Culture - Preliminary Urine,Catheterized Gram Negative Rods DS: Diagnosis Discharge Diagnosis (1) Large for gestational age fetus affecting management of mother, antepartum: Status: Acute (2) History of fourth degree perineal laceration: Status:
[2022-05-01 06:58] VITALS: BP 130/75; PULSE 99; TEMP 36.6
--- NOTE | 2022-05-01 06:58 | EXP.ANES.II ---
[facility] Anesthesia Record Part II Anesthesia Record Part II Discharge Time: 06:14 Destination: Obstetric Gynecology Dept PACU nurse assessment reviewed?: Yes Patient Condition:: Good Anesthesia Complications:: None Swallowing reflex intact?: Yes Cyanosis?: No Blood Pressure: 130/75 Pulse Rate: 99 Temperature: 98 F Mental Status: Alert & Oriented Pain level:: 0 Nausea and/or vomitting:: None Intake, IV Amount: 0
== END 2022-04-24 14:15 | disposition home or self-care (01) | DRG 788 ==
LOC: OBOUT 03:51 → OB 03:55
PROVIDERS: Admitting Provider Nurse Practitioner Obstetrics & Gynecology; PCP Nurse Practitioner Family; Visit Provider Nurse Practitioner Obstetrics & Gynecology
PROC: 10D00Z1 Extraction of Products of Conception, Low, Open Approach (ICD-10-PCS; CPT 59514; principal; 2022-04-22 04:30)
DX: O82 Encounter for cesarean delivery without indication (principal); Z3A.36 36 weeks gestation of pregnancy; Z37.0 Single live birth; Z23 Encounter for immunization; Z87.59 Personal history of other complications of pregnancy, childbirth and the puerperium
CPT/HCPCS: 59514; 96372; 90384; 36415; 59025; 76816; 80048; 80305; 81001; 82800; 82951; 82962; 85014; 85018; 85025; 85461; 86403; 86850; 87086; 87088; 87186; 96360; C9290; C9803; J1956; J2405; J2790; U0003; U0005

== ENCOUNTER 2022-11-17 13:43 | Emergency (ER) | payer MEDICAID, SELFPAY ==
[2022-11-17 13:50] VITALS: BP 166/102; PULSE 86; RESP 20; TEMP 36.7; O2SAT 98; BMI 36.0
--- NOTE | 2022-11-17 13:50 | XR_ITS ---
FINAL REPORT CLINICAL HISTORY: TWISTED LEFT KNEE GETTING OUT OF BED, pt felt a pop COMPARISON: 09/11/2017 FINDINGS: Three views of the left knee reveal no evidence of fracture or dislocation. The bony alignment is normal. The joint spaces are preserved. There is no evidence of joint effusion. No localized soft tissue abnormality is seen. IMPRESSION: No acute abnormality identified. Reviewed, Interpreted and Dictated by Nik Lance III, MD Transcribed by Gianna Fabian Authenticated and [facility]
--- NOTE | 2022-11-17 14:13 | EXP.UTC ---
Discharge Plan Disposition Patient Disposition: Home, Self-Care Condition: Good Prescriptions Prescriptions: No Action hydroxyzine pamoate [Vistaril] 25 mg capsule 25 mg PO BIDP PRN (Reason: Anxiety) sertraline 50 mg tablet 50 mg PO DAILY Patient Comments: Take 1 oral tablet once a day Referrals Follow up/Referrals: Dustin Evangelista JR, MD [Physician] - See instructions Xavi Kuhn DO [Staff Physician] - See instructions Nafisa Mills APRN [Primary Care Provider] - See instructions Activity Restrictions/Add. Instructions Additional Instructions/Restrictions: *weight bearing as tolerated *RICE, Rest the extremity, Ice 15-20 minutes 3-4 times daily, Compress- wear the yary wrap as discussed as much as possible to help reduce swelling and pain, Elevate the extremity when at rest *Knee immobilizer is for support and help control swelling, use it except in the shower. Be sure that is not to tight but not to loose either *Elevate when resting? *Ibuprofen 600-800mg every 6-8 hours as needed for pain an inflammation. If need something more can take Tylenol in between doses of Ibuprofen to help Clinical Impressions Clinical Impression: Knee strain Qualifiers: Encounter type: initial encounter Laterality: right Qualified Code(s): S86.911A - Strain of unspecified muscle(s) and tendon(s) at lower leg level, right leg, initial encounter Instructions Patient Instructions: DI for Knee Pain, How to Use a Knee Immobilizer Discharge ED Provider: Rohini Ho [facility] General Stated complaint: left knees, weakness Mode of Arrival: Ambulatory Source of Information: Patient Limitations: No Limitations Time Seen by Provider: 11/17/22 14:13 Description of Symptoms (Recalled from Triage Doc. by RN): PATIENT STATES THAT SHE WAS GETTING OUT OF BAD LAST NIGHT AND HER LEFT KNEE TWISTED AND POPPED. SHE C/O PAIN AND STATES IT HURTS TO PUT WEIGHT ON IT HEENT Symptoms (Recalled from RN notes): No Resp Symptoms (Recalled from RN notes): No Skin Symptoms (Recalled from RN notes): No MS Symptoms (Recalled from RN notes): Yes Functional Status (Recalled from RN notes): WNL History of Present Illness Provider Complaint: Patient states that she was getting out of bed last night when she twisted her left knee and felt a pop States that since then she has been having pain in her left knee that is worse when she tries to apply weight to it States that today it was still hurting so she came in to get it checked Related Data Home Medications Medication Instructions Recorded Confirmed hydroxyzine pamoate 25 mg capsule 25 mg PO BIDP PRN Anxiety 01/10/22 06/01/22 (Vistaril) sertraline 50 mg tablet 50 mg PO DAILY MOOD 04/22/22 06/01/22 Allergies Allergy/AdvReac Type Severity Reaction Status Date / Time Penicillins Allergy Verified 06/01/22 11:13 Worker's Comp Is this a Worker's Comp case?: No [facility] Disclaimer: The information contained in this section may have been updated after the patient was seen, as this information can be updated by other users. Medical History (Updated 11/17/22 @ 15:10 by Rohini Ho APRN) Bilateral tinnitus delivery delivered History of fourth degree perineal laceration Post traumatic stress disorder (PTSD) Recurrent loss Rh negative status during Syncope Surgical History History of delivery Hx of cholecystectomy Family History Other Cancer Diabetes FHx: mental illness Social History Smoking Status: Former smoker second hand exposure: Yes alcohol intake: never substance use type: denies use current occupational status: employed Travel in the last 8 weeks: None household members: spouse housing: apartment marital status: number of
[2022-11-17 15:11] VITALS: BP 166/102; PULSE 86; RESP 20; TEMP 36.7; O2SAT 98
== END 2022-11-17 15:22 | disposition home or self-care (01) ==
PROVIDERS: Emergency Provider Nurse Practitioner; PCP Nurse Practitioner Family
DX: Z87.891 Personal history of nicotine dependence; W06.XXXA Fall from bed, initial encounter; S86.912A Strain of unspecified muscle(s) and tendon(s) at lower leg level, left leg, initial encounter
CPT/HCPCS: 73562; 99212; 99214; G0463

== ENCOUNTER → 2022-12-05 08:37 | Outpatient (CLI) | payer MEDICAID, SELFPAY ==
--- NOTE | 2022-12-05 08:41 | XR_ITS ---
FINAL REPORT CLINICAL HISTORY: right knee pain COMPARISON: None FINDINGS: There is no acute fracture or dislocation in the right knee. The joint spaces are intact. There is no soft tissue abnormality. IMPRESSION: No acute fracture Reviewed, Interpreted and Dictated by Zackery Serrano MD Transcribed by eJs Low Authenticated and . [facility]
== END ==
PROVIDERS: PCP Nurse Practitioner Family; Visit Provider Orthopaedic Surgery
DX: M25.561 Pain in right knee (principal)
CPT/HCPCS: 73562

== ENCOUNTER → 2023-01-03 13:50 | Outpatient (CLI) | payer MEDICAID, SELFPAY ==
--- NOTE | 2023-01-03 13:50 | MR_ITS ---
FINAL REPORT CLINICAL HISTORY: Left knee pain LEFT KNEE PAIN PER PATIENT KNEE GIVES OUT COMPARISON: None FINDINGS: Multi planar MR imaging was performed of the knee. The anterior and posterior cruciate ligaments are intact. The quadriceps and patellar tendons are intact. There is a linear tear of the posterior horn of the medial meniscus extending to the margin of the meniscus best seen on image 8 of series 4. The medial and lateral collateral ligaments appear intact. The medial and lateral retinacula appear intact. There is no evidence of bone marrow edema or osteochondral defect. There is a minimal popliteal cyst. IMPRESSION: Small tear posterior horn medial meniscus. Reviewed, Interpreted and Dictated by Zackery Serrano MD Transcribed by Gianna Fabian Authenticated and [facility]
== END ==
PROVIDERS: PCP Nurse Practitioner Family; Visit Provider Orthopaedic Surgery
DX: M23.92 Unspecified internal derangement of left knee (principal); M25.562 Pain in left knee
CPT/HCPCS: 73721

== ENCOUNTER 2023-03-09 12:37 | Emergency (ER) | payer MEDICAID, SELFPAY ==
[2023-03-09 13:00] VITALS: BP 138/89; PULSE 84; RESP 22; TEMP 36.9; O2SAT 97; BMI 36.8
[2023-03-09 13:13] VITALS: BP 138/89; PULSE 84; RESP 22; TEMP 36.9; O2SAT 97
--- NOTE | 2023-03-09 13:20 | EXP.UTC ---
Discharge Plan Disposition Patient Disposition: Home, Self-Care Condition: Good Prescriptions Prescriptions: New methylprednisolone 4 mg Tablets,Dose Pack 4 mg PO DIRECTED Qty: 21 0RF bqbsejyujzvuuqy-iitxnjxvy-VM [Bromfed DM] 2-30-10 mg/5 mL Syrup 5 ml PO Q6H PRN (Reason: Cough) Qty: 240 0RF azithromycin [Zithromax] 250 mg tablet 250 mg PO UD DOSE PK Qty: 6 0RF Rx Instructions: Take two (2) tablets today, then one (1) tablet days #2 thru #5 No Action hydroxyzine pamoate [Vistaril] 25 mg capsule 25 mg PO BIDP PRN (Reason: Anxiety) norethindrone ac-eth estradiol [Loestrin 1.5 ()] 1.5-30 mg-mcg tablet 1 tab PO DAILY Qty: 63 1RF Nexplanon 68 mg Implant 68 mg SUBDERMAL ONCE Referrals Follow up/Referrals: Nafisa Mills APRN [Primary Care Provider] - See instructions Activity Restrictions/Add. Instructions Additional Instructions/Restrictions: Drink plenty of fluids. Take tylenol or ibuprofen for pain or fever. Take the medications as directed. Follow up with your regular doctor. GO TO THE ER FOR ANY WORSENING SYMPTOMS Clinical Impressions Clinical Impression: Acute bronchitis Instructions Patient Instructions: Acute Bronchitis, DI for Acute Bronchitis Discharge ED Provider: Hang Brenner [facility] [place] General Stated complaint: congestion, cough Mode of Arrival: Ambulatory Source of Information: Patient Limitations: No Limitations Time Seen by Provider: 03/09/23 13:20 Description of Symptoms (Recalled from Triage Doc. by RN): PATIENT C/O NASAL CONGESTION, COUGH, AND CHEST CONGESTION X 4 DAYS HEENT Symptoms (Recalled from RN notes): Yes Resp Symptoms (Recalled from RN notes): Yes Skin Symptoms (Recalled from RN notes): No MS Symptoms (Recalled from RN notes): No Functional Status (Recalled from RN notes): WNL History of Present Illness Provider Complaint: She states that for the past 4 days she has had sore throat, cough, sinus congestion, and chest congestion. Related Data Home Medications Medication Instructions Recorded Confirmed hydroxyzine pamoate 25 mg capsule 25 mg PO BIDP PRN Anxiety 01/10/22 03/09/23 (Vistaril) etonogestrel 68 mg subdermal 68 mg subdermal ONCE 03/09/23 03/09/23 implant (Nexplanon) Previous Rx's Medication Instructions Recorded norethindrone acetate 1.5 1 tab PO DAILY #63 tabs 11/28/22 mg-ethinyl estradiol 30 mcg tablet (Loestrin) azithromycin 250 mg tablet 250 mg PO UD DOSE PK #6 tabs 03/09/23 (Zithromax) mteypthhgjvxace-ahgpghcmwgqopqs-YQ 5 ml PO Q6H PRN Cough #240 mL 03/09/23 2 mg-30 mg-10 mg/5 mL oral syrup (Bromfed DM) methylprednisolone 4 mg tablets in 4 mg PO DIRECTED #21 tabs 03/09/23 a dose pack Allergies Allergy/AdvReac Type Severity Reaction Status Date / Time Penicillins Allergy Verified 01/09/23 10:27 Worker's Comp Is this a Worker's Comp case?: No [facility] Disclaimer: The information contained in this section may have been updated after the patient was seen, as this information can be updated by other users. Medical History Bilateral tinnitus delivery delivered History of fourth degree perineal laceration Post traumatic stress disorder (PTSD) Recurrent loss Rh negative status during Syncope Surgical History History of delivery Hx of cholecystectomy Family History Other Cancer Diabetes FHx: mental illness Social History Smoking Status: Former smoker tobacco type: cigarettes packs per day: 1 second hand exposure: Yes alcohol intake: never substance use type: denies use current occupational status: employed Travel in the last 8 weeks: None household members: spouse housing: apartment
== END 2023-03-09 14:00 | disposition home or self-care (01) ==
PROVIDERS: Emergency Provider Nurse Practitioner Family; PCP Nurse Practitioner Family
DX: J20.9 Acute bronchitis, unspecified (principal); R05.9 Cough, unspecified; R09.81 Nasal congestion; R07.0 Pain in throat; R09.89 Other specified symptoms and signs involving the circulatory and respiratory systems; Z87.891 Personal history of nicotine dependence
CPT/HCPCS: 87635; 99212; 99214; G0463

== ENCOUNTER 2023-05-10 13:43 | Emergency (ER) | payer MEDICAID, SELFPAY ==
[2023-05-10 14:10] VITALS: BP 123/77; PULSE 94; RESP 21; TEMP 36.9; O2SAT 99; BMI 36.0
--- NOTE | 2023-05-10 14:58 | EXP.UTC ---
Discharge Plan Disposition Patient Disposition: Home, Self-Care Condition: Good Prescriptions Prescriptions: New methylprednisolone [Medrol (Oswald)] 4 mg tablets,dose pack See Rx Instructions .Route .COMPLEX 6 Days Qty: 21 0RF Rx Instructions: taper pack; Referrals Follow up/Referrals: Zachary Sánchez MD [Primary Care Provider] - See instructions Gregory Figueroa [Referring] - See instructions Activity Restrictions/Add. 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 by RN): PATIENT STATES THAT SHE HAS BEEN EXPOSED TO BLACK MOLD FOR APPROX 1 YEAR. SHE STATES THAT WHILE HER CEILING WAS BEING REPLACED TODAY SHE HAD NOWHERE TO GO AND THINKS SHE INHALED MORE BLACK MOLD AND INSULATION. C/O SOA, HEADACHE AND DIZZINESS HEENT Symptoms (Recalled from RN notes): Yes Resp Symptoms (Recalled from RN notes): Yes Skin Symptoms (Recalled from RN notes): No MS Symptoms (Recalled from RN notes): No Functional Status (Recalled from RN notes): WNL History of Present Illness Provider Complaint: Patient states that she has been living in her apartment for about a year and found out it had black mold in the ceiling States that today they was tearing out her ceiling and she didnt have anywhere to go so she was there and worried that she may have breathed in some insulation and the black mold after she started having headache and feeling itchy Related Data Previous Rx's Medication Instructions Recorded methylprednisolone 4 mg tablets in See Rx Instructions .Route 05/10/23 a dose pack (Medrol (Oswald)) .COMPLEX 6 days #21 tabs Allergies Allergy/AdvReac Type Severity Reaction Status Date / Time Penicillins Allergy Verified 01/09/23 10:27 Worker's Comp Is this a Worker's Comp case?: No [facility] Disclaimer: The information contained in this section may have been updated after the patient was seen, as this information can be updated by other users. Medical History Bilateral tinnitus delivery delivered History of fourth degree perineal laceration Post traumatic stress disorder (PTSD) Recurrent loss Rh negative status during Syncope Surgical History History of delivery Hx of cholecystectomy Family History Other Cancer Diabetes FHx: mental illness Social History Smoking Status: Former smoker tobacco type: cigarettes packs per day: 1 second hand exposure: Yes alcohol intake: never substance use type: denies use current occupational status: employed Travel in the last 8 weeks: None household members: spouse housing: apartment marital status: number of children: 2 ROS Obtained: Yes All systems reviewed & no additional complaints except as documented and Yes Systems reviewed as appropriate & no additional complaints except as documented Eyes Eyes: Reports other (itchy eyes) ENT Ears, Nose, Mouth, and Throat: Reports system reviewed and no additional complaints, except as documented, Reports as per HPI, Reports nasal congestion and Reports nasal discharge Cardiovascular Cardiovascular: Reports system reviewed and no additional complaints, except as documented and Reports as per HPI Respiratory Respiratory: Reports system reviewed and no additional complaints, except as documented, Reports as per HPI, Reports shortness of breath and Reports other (felt like she couldnt get a deep breath earlier) Gastrointestinal Gastrointestingal: Reports system reviewed and no additional complaints, except as documented and as per HPI Physical Exam General General appearance: alert and in no apparent distress ENT ENT exam: Present mucous membranes moist Respiratory Respiratory exam: Present normal lung sounds bilaterally; Absent respiratory distress, wheezes or accessory muscle use Cardiovascular Cardiovascular exam: Present regular rate, normal rhythm and normal heart sounds Abdominal Exam Abdominal exam: Present soft and normal bowel sounds; Absent distention or tenderness Neurological Exam Neurological exam: Present alert, oriented X3 and normal gait Skin Skin exam: Present other (reports itching all over had red spots on skin prior to arrival none now); Absent rash Medical Decision Making Edu Inquiry Pt receiving controlled substance: No Edu was queried for this patient: No Vital Signs: 05/10/23 14:10 Temperature 98.5 F Temperature Source Oral Pulse Rate [Left Brachial] 94 H Respiratory Rate 21 Blood Pressure [Left Arm] 123/77 Blood Pressure Mean [Left Arm] 92 Blood Pressure Source [Left Arm] Automatic Cuff Blood Pressure Position [Left Arm] Sitting 02 Sat by Pulse Oximetry 99 Oxygen Delivery Method Room Air Medical Decision Narrative: Patient denies has nexplanon patient states that she has had steriods in the past without complications or reactions
[2023-05-10] MEDS: METHYLPREDNISOLONE SOD SUCC 125MG VIAL 125 MG IM (15:12)
[2023-05-10 15:25] VITALS: BP 123/77; PULSE 94; RESP 21; TEMP 36.9; O2SAT 99
== END 2023-05-10 15:27 | disposition home or self-care (01) ==
PROVIDERS: Emergency Provider Nurse Practitioner; PCP Internal Medicine Adolescent Medicine
DX: J30.89 Other allergic rhinitis (principal); R51.9 Headache, unspecified; R42 Dizziness and giddiness; Z77.120 Contact with and (suspected) exposure to mold (toxic); Z87.891 Personal history of nicotine dependence
CPT/HCPCS: 96372; 99212; 99214; G0463

== ENCOUNTER 2023-07-12 14:21 | Outpatient (RCR) | payer MEDICAID, SELFPAY | END 2023-07-12 15:30 | disposition home or self-care (01) | LOC: PT 14:21 | PROVIDERS: Visit Provider Orthopaedic Surgery | DX: M25.562 Pain in left knee; S83.232A Complex tear of medial meniscus, current injury, left knee, initial encounter | CPT/HCPCS: 97760 ==

== ENCOUNTER 2023-08-06 15:34 | Outpatient (CLI) | payer MEDICAID, SELFPAY ==
--- NOTE | 2023-08-06 15:35 | ECG_ITS ---
APPROVED REPORT Exam: Resting ECG HR:77 bpm ECG Measurements Heart Rate 77 AXES WI 184 P 18 QRSd 93 QRS 30 QT 359 T 7 QTc 390 Conclusion SINUS RHYTHM NONSPECIFIC T-WAVE ABNORMALITY BORDERLINE ECG UNCONFIRMED REPORT Electronically signed by : Zachary Sánchez MD 08/06/2023 17:36:33
--- NOTE | 2023-08-06 15:38 | XR_ITS ---
FINAL REPORT TECHNIQUE: Chest PA & Lateral CLINICAL HISTORY: Pre Op for knee surgery FINDINGS: 2 views of the chest were performed. The heart size is normal. The mediastinum is within normal limits. There is no acute cardiopulmonary process. There are no pleural effusions. There is no pneumothorax. The bony thorax appears intact. IMPRESSION: No acute cardiopulmonary process. Reviewed, Interpreted and Dictated by Zackery Serrano MD Transcribed by Kirstin Williamson Authenticated and [facility]
[2023-08-06 16:14] LABS: Basophils # 0.1 K/mm3 (0-0.2); Basophils % 0.7 % (0.1-2.0); Eosinophils # 0.4 K/mm3 (0.0-0.4); Eosinophils % 3.2 % (0.1-12.0); Hematocrit 44.5 % (37.0-47.0); Hemoglobin 14.9 g/dL (12.2-16.2); Lymphocytes # 2.9 K/mm3 (0.7-4.5); Lymphocytes % 24.4 % (10-50); Mean Corpuscular HGB Conc 33.5 g/dL (31.8-35.4); Mean Corpuscular Hemoglobin 28.3 pg (27.0-31.2); Mean Corpuscular Volume 84.6 fl (81-99); Mean Platelet Volume 8.5 fl (7.4-10.4); Monocytes # 0.4 K/mm3 (0.1-1.0); Monocytes % 3.8 % (1.7-9.3); Neutrophils # 7.9 K/mm3 (1.8-7.8); Neutrophils % 67.8 % (37.0-80.0); Platelet Count 292 K/mm3 (142-424); Red Blood Count 5.25 M/mm3 (4.20-5.40); Red Cell Distribution Width 14.7 % (11.5-17.5); White Blood Count 11.7 K/mm3 (4.8-10.8)
[2023-08-06 17:14] LABS: Chloride 109 mmol/L (98-107)
[2023-08-06 17:15] LABS: Potassium 4.2 mmoL/L (3.5-5.1); Sodium 139 mmol/L (136-145)
[2023-08-06 17:18] LABS: Anion Gap 10.2 mEq/L (5-15); Blood Urea Nitrogen 5 mg/dl (7-17); Calcium 9.5 mg/dl (8.4-10.2); Carbon Dioxide 24 mmol/L (22.0-30.0); Estimated Glomerular Filt Rate 121 ml/min (>60); GFR (African American) 146 ML/MIN (>60); Glucose 95 mg/dl (74-100)
== END 2023-08-06 23:59 | disposition home or self-care (01) ==
LOC: LAB 15:35
PROVIDERS: Surgery; PCP Internal Medicine Adolescent Medicine; Visit Provider Orthopaedic Surgery
DX: Z01.818 Encounter for other preprocedural examination (principal); S83.242A Other tear of medial meniscus, current injury, left knee, initial encounter; L98.9 Disorder of the skin and subcutaneous tissue, unspecified
CPT/HCPCS: 36415; 71046; 80048; 85025

== ENCOUNTER 2023-08-08 06:58 | Day surgery (SDC) | payer MEDICAID, SELFPAY ==
[2023-08-06 10:04] VITALS: BMI 22.3
[2023-08-08] VITALS (8 sets, daily range): BP systolic 126–144; BP diastolic 70–92; PULSE 70–86; RESP 16–18; TEMP 36.1–36.2; O2SAT 91–98; BMI 35.8
[2023-08-08 07:43] LABS: Urine Pregnancy, HCG Qual. Negative (Negative)
[2023-08-08] MEDS: LACTATED RINGERS 1000ML 1,000 ML 25 ML IV (07:45)
[2023-08-08] MEDS: CLINDAMYCIN PHOSPHATE/D5W 900 MG/50 ML PIGGYBACK 100 MG IV (09:45)
--- NOTE | 2023-08-08 09:49 | P.PNANES_ITS ---
[facility] Disclaimer: The information contained in this section may have been updated after the patient was seen, as this information can be updated by other users. Medical History delivery delivered Bilateral tinnitus Syncope Post traumatic stress disorder (PTSD) History of fourth degree perineal laceration Recurrent loss Rh negative status during Surgical History History of delivery Hx of cholecystectomy Family History Other Cancer Diabetes FHx: mental illness Social History Smoking Status: Former smoker tobacco type: cigarettes packs per day: 1 second hand exposure: Yes alcohol intake: never substance use type: denies use current occupational status: unemployed Travel in the last 8 weeks: None household members: spouse housing: apartment marital status: number of children: 2 [facility] Anesthesia Checklist Patient Identification Patient Identification: Arm Band Structural Data Admitted From: Home Planned Operative Procedure/s: Left Knee Arthroscopy Consent for Planned Operative Procedure(s) Verified: Yes Verified Documents: Surgical Consent and History and Physical NPO Status Verified Time NPO: 00:00 Additional verifications Anesthesia Reactions: No Hx Blood Transfusions: Yes Blood Transfusion Reaction: No Airway Assessment Mallampati Score:: Class II C-Spine Mobility Assessed: Yes TMJ Mobility Assessed: Yes Dentition: Good Dentition Neurological Assessment Level of Consciousness: Awake and Alert Anesthesia Plan Anesthesia Risk discussed: Yes Anesthesia Plan: Verified ASA Class: II Anesthesia Type: General
[2023-08-08] MEDS: BUPIVACAINE 0.25% 30ML VIAL 75 MG (09:51)
--- NOTE | 2023-08-08 10:08 | EXP.OP.NOTE ---
Date of procedure: 08/08/23 Pre-op Diagnosis:: Left knee medial meniscus tear Post-op Diagnosis:: Left knee medial meniscus tear Left knee extensive synovitis patellofemoral joint Procedure performed:: Left knee arthroscopy partial medial meniscectomy Left knee arthroscopy extensive debridement synovitis patellofemoral joint Surgeon:: Xavi Kuhn DO REED OR WIND INSTRUMENT REPAIRER:: Rachid Feeanthony Anesthesia: GETA Estimated blood loss (mL): 0 Operative findings:: Nondisplaced tear posterior horn medial meniscus intact articular cartilage extensive synovitis patellofemoral joint anterior compartment Operative note:: Patient is identified preoperatively. Left knee marked with yes my initials. Transported operative suite. Placed upon the operating bed. General anesthesia ministered airway secured. Left lower extremity was then prepped and draped in normal sterile fashion. Once prepped and draped final operative timeout performed to identify proper patient procedure and extremity. Everyone involved the case agreed. No counter indications beginning. Did receive preoperative antibiotics. Marking pen was used to hans the bony landmarks in the and standard portal sites. Esmarch was used to exsanguinate the extremity and pneumatic tourniquet inflated to 300 mmHg. Skin knife was used to incise standard anterior lateral portal and blunt with trocar was placed in patellofemoral joint exchange with a camera. Diagnostic arthroscopy began. I swept directly into the medial joint line where the anterior medial portal was made with the help with 18-gauge spinal needle. This was then exchanged with a probe and diagnostic arthroscopy continued. Within the medial joint line there was tearing at the junction of the body and posterior horn the medial meniscus was nondisplaced. Using a combination of straight biter and sucker shaver partial medial meniscectomy was performed back to stable rim. Scope into the intercondylar notch with a significant amount of synovitis present but there was an intact ACL . Scope into the lateral joint line within the lateral joint line placed a probe the lateral cartilage was intact lateral meniscus was intact without tears. Scope into the medial and lateral gutters within the medial gutter there was also significant synovitis present which was debrided with sucker shaver. So back in the patellofemoral joint and placed the knee through range of motion patella did track midline in the trochlea with very slight lateral tracking of the patella present. No full-thickness cartilage lesions of the trochlea over the patella. Attention was brought back into the patellofemoral joint with a significant amount of synovitis present the sucker shaver was used to perform significant synovectomy in this area. Once this was complete the cameras removed the joint was drained. Local anesthesia infiltrated the portal sites. Skin closed with nylon stitch. Sterile dressing placed from toe to thigh. Patient was awakened anesthesia taken recovery stable condition Condition: stable Disposition: PACU Complications:: None apparent
--- NOTE | 2023-08-08 10:23 | EXP.ANES.I ---
[facility] Anesthesia Record Part I Anesthesia Record I Intake, IV Amount: 1,100 Hydration: Adequate Estimated blood loss (mL): 5 Urine output (mL): 0 Blood Products used (#): none Blood Pressure: 142/70 SaO2: 91 Pulse Rate: 71 Airway Patency: Patent Respiratory Rate: 16 Temperature: 97 F Patient is:: Drowsy and Stable Stable to PACU at:: 10:15
--- NOTE | 2023-08-09 08:24 | EXP.ANES.II ---
[facility] Anesthesia Record Part II Anesthesia Record Part II Discharge Time: 10:45 Destination: Surgical Day Care (OP Surgery) PACU nurse assessment reviewed?: Yes Patient Condition:: Good Anesthesia Complications:: None Swallowing reflex intact?: Yes Airway Patency: Patent Cyanosis?: No Blood Pressure: 144/92 SaO2: 94 Respiratory Rate: 17 Pulse Rate: 70 Temperature: 97 F Mental Status: Alert & Oriented Pain level:: 0 Nausea and/or vomitting:: None Intake, IV Amount: 0 Hydration: Adequate
[2023-08-09 08:26] VITALS: BP 144/92; PULSE 70; RESP 17; TEMP 36.1; O2SAT 94
== END 2023-08-08 11:03 | disposition home or self-care (01) ==
PROVIDERS: PCP Internal Medicine Adolescent Medicine; Visit Provider Orthopaedic Surgery
PROC: (CPT 29870; principal; 2023-08-08 09:00)
DX: S83.232A Complex tear of medial meniscus, current injury, left knee, initial encounter (principal); Z87.891 Personal history of nicotine dependence; S76.112A Strain of left quadriceps muscle, fascia and tendon, initial encounter
CPT/HCPCS: 29881; 81025; 96372; J2405

== ENCOUNTER 2023-08-13 06:03 | Day surgery (SDC) | payer MEDICAID, SELFPAY ==
[2023-08-13] VITALS (8 sets, daily range): BP systolic 120–130; BP diastolic 58–84; PULSE 76–97; RESP 18–19; TEMP 36.3–36.9; O2SAT 95–98; BMI 36.0
[2023-08-13] MEDS: LACTATED RINGERS 1000ML 1,000 ML 25 ML IV (06:39)
--- NOTE | 2023-08-13 07:02 | P.PNANES_ITS ---
[facility] Disclaimer: The information contained in this section may have been updated after the patient was seen, as this information can be updated by other users. Medical History delivery delivered Bilateral tinnitus Syncope Post traumatic stress disorder (PTSD) History of fourth degree perineal laceration Recurrent loss Rh negative status during Surgical History History of knee surgery History of delivery Hx of cholecystectomy Family History Other Cancer Diabetes FHx: mental illness Social History (Updated 08/13/23 @ 06:38 by Jessica Berman RN) Smoking Status: Former smoker tobacco type: cigarettes packs per day: 1 second hand exposure: Yes alcohol intake: never substance use type: denies use current occupational status: unemployed Travel in the last 8 weeks: None household members: spouse housing: apartment marital status: number of children: 2 [facility] Anesthesia Checklist Patient Identification Patient Identification: Arm Band and Verbal (Name & ) Structural Data Admitted From: Home Planned Operative Procedure/s: Excision of scalp lesion Consent for Planned Operative Procedure(s) Verified: Yes Verified Documents: Surgical Consent and History and Physical NPO Status Verified Time NPO: 23:00 Chart Verification Results Verified: CBC, BMP and HCG Additional verifications Patient : No Anesthesia Reactions: No Hx Blood Transfusions: Yes Blood Transfusion Reaction: No Cardiovascular Assessment Heart Sounds: S1 & S2 Pulse Rhythm: Irregular Peripheral Edema: No Airway Assessment Mallampati Score:: Class II C-Spine Mobility Assessed: Yes (FROM) TMJ Mobility Assessed: Yes Dentition: Edentulous Neurological Assessment Level of Consciousness: Awake, Alert, Appropriate and Follows Commands Hx Seizures: No Numbness or tingling in extremities: No Anesthesia Plan Anesthesia Risk discussed: Yes Anesthesia Plan: Verified ASA Class: II Anesthesia Type: General
[2023-08-13] MEDS: CLINDAMYCIN PHOSPHATE/D5W 900 MG/50 ML PIGGYBACK 50 MG (07:44)
[2023-08-13] MEDS: BUPIVACAINE 0.5% W/EPI 1:200,000 30ML VIAL 30 ML IJ (07:44)
--- NOTE | 2023-08-13 08:02 | EXP.OP.NOTE ---
Date of procedure: 08/13/23 Pre-op Diagnosis:: Scalp lesion Post-op Diagnosis:: Same Procedure performed:: Excision of lesion from posterior scalp with simple closure (excisional length approximately 1.5 cm) Surgeon:: Nik Boykin MD FOREIGN TRADE TEACHER:: Giovani Hodge Anesthesia: LMA Estimated blood loss (mL): 5 Operative findings:: Fleshy raised benign-appearing lesion Operative note:: Patient was taken the operating room. She was given preoperative intravenous antibiotic. In the operating room she was placed in a supine position. Anesthesia was induced via LMA. She was repositioned in the lateral position. Area was prepped and draped in the standard surgical fashion. Local anesthetic was infiltrated. Limited ellipse was made excising the base of the lesion. It was sent off as a specimen. Hemostasis was achieved with electrocautery. Dermal tissues were reapproximated with 1 or 2 interrupted 3-0 Vicryl sutures. Skin was closed with skin karmon. Dermabond was applied. Condition: stable Disposition: PACU Complications:: None immediately apparent
--- NOTE | 2023-08-13 12:00 | EXP.ANES.II ---
[facility] Anesthesia Record Part II Anesthesia Record Part II Discharge Time: 08:30 Destination: Surgical Day Care (OP Surgery) PACU nurse assessment reviewed?: Yes Patient Condition:: Good Anesthesia Complications:: None Swallowing reflex intact?: Yes Airway Patency: Patent Cyanosis?: No Blood Pressure: 130/65 SaO2: 98 Respiratory Rate: 19 Pulse Rate: 88 Temperature: 97.4 F Mental Status: Alert & Oriented Pain level:: 0 Nausea and/or vomitting:: None Intake, IV Amount: 0 Hydration: Adequate
== END 2023-08-13 09:00 | disposition home or self-care (01) ==
PROVIDERS: PCP Internal Medicine Adolescent Medicine; Visit Provider Surgery
PROC: (CPT 11422; principal; 2023-08-13 07:30)
DX: D23.4 Other benign neoplasm of skin of scalp and neck (principal)
CPT/HCPCS: 11422; 96374; J2405

== ENCOUNTER 2023-08-16 10:53 | Outpatient (CLI) | payer MEDICAID, SELFPAY ==
--- NOTE | 2023-08-16 10:57 | CA_ITS ---
FINAL REPORT TECHNIQUE: Compression nichols scale and Doppler evaluation CLINICAL HISTORY: Lt calf swelling 10 post orthoscopy of left knee FINDINGS: Femoral and popliteal veins show normal compressibility and flow. Visualized portion of the calf veins are patent by Doppler exam. IMPRESSION: No evidence of left lower extremity deep venous thrombosis Reviewed, Interpreted and Dictated by Ashley White MD Transcribed by Elise Will Authenticated and [facility]
== END 2023-08-16 23:59 | disposition home or self-care (01) ==
LOC: RT 10:54
PROVIDERS: PCP Internal Medicine Adolescent Medicine; Visit Provider Orthopaedic Surgery
DX: M79.662 Pain in left lower leg (principal); S83.232A Complex tear of medial meniscus, current injury, left knee, initial encounter
CPT/HCPCS: 93971

== ENCOUNTER 2024-05-30 12:15 | Outpatient (CLI) | payer MEDICAID, SELFPAY ==
--- NOTE | 2024-05-30 12:20 | XR_ITS ---
FINAL REPORT CLINICAL HISTORY: right wrist fx COMPARISON: None FINDINGS: RIGHT WRIST Three views show no evidence of an acute, displaced fracture or dislocation of the visualized bony architecture. The joint spaces appear normal. IMPRESSION: Unremarkable exam. Reviewed, Interpreted and Dictated by Ashley White MD Transcribed by Whitney Lancaster Authenticated and [facility]
[2024-05-30 12:47] LABS: Basophils # 0.1 K/mm3 (0-0.2); Basophils % 0.7 % (0.1-2.0); Eosinophils # 0.4 K/mm3 (0.0-0.4); Eosinophils % 3.6 % (0.1-12.0); Hematocrit 39.8 % (37.0-47.0); Hemoglobin 13.4 g/dL (12.2-16.2); Lymphocytes # 2.7 K/mm3 (0.7-4.5); Lymphocytes % 25.1 % (10-50); Mean Corpuscular HGB Conc 33.7 g/dL (31.8-35.4); Mean Corpuscular Hemoglobin 28.6 pg (27.0-31.2); Mean Corpuscular Volume 84.9 fl (81-99); Mean Platelet Volume 10.4 fl (7.4-10.4); Monocytes # 0.7 K/mm3 (0.1-1.0); Monocytes % 6.2 % (1.7-9.3); Neutrophils # 6.9 K/mm3 (1.8-7.8); Neutrophils % 64.1 % (37.0-80.0); Platelet Count 312 K/mm3 (142-424); Red Blood Count 4.69 M/mm3 (4.20-5.40); Red Cell Distribution Width 13.8 % (11.5-17.5); White Blood Count 10.7 K/mm3 (4.8-10.8)
[2024-05-30 13:08] LABS: Alanine Aminotransferase 37 U/L (12-78); Albumin Level 4.7 g/dl (3.5-5.0); Albumin/Globulin Ratio 2.6 (1.1-1.8); Alkaline Phosphatase 59 U/L (38-126); Anion Gap 16.2 mEq/L (5-15); Aspartate Amino Transferase 28 U/L (14-36); Bilirubin,Total 0.8 mg/dl (0.2-1.3); Blood Urea Nitrogen 9 mg/dl (7-17); Calcium 9.6 mg/dl (8.4-10.2); Carbon Dioxide 25 mmol/L (22.0-30.0); Chloride 104 mmol/L (98-107); Estimated Glomerular Filt Rate 100 ml/min (>60); GFR (African American) 121 ML/MIN (>60); Globulin 1.8 g/dL (1.3-3.2); Glucose 115 mg/dl (74-100); Potassium 4.2 mmoL/L (3.5-5.1); Sodium 141 mmol/L (136-145); Total Protein,Serum 6.5 g/dl (6.3-8.2)
[2024-05-30 13:13] LABS: C-Reactive Protein 2.9 mg/L (0-4)
[2024-05-30 13:15] LABS: Erythrocyte Sedimentation Rate 5 mm/hr (0-20)
[2024-05-30 13:25] LABS: 25-OH Vitamin D, Total 18.3 ng/mL (30-100)
[2024-05-30 13:38] LABS: Thyroid Stimulating Hormone 0.41 uIU/mL (0.465-4.68)
[2024-05-31 10:14] LABS: RA Latex Turbid. <10.0 IU/mL (<14.0)
[2024-06-03 09:11] LABS: Antinuclear Antibodies, IFA Negative (.)
[2024-06-05 15:19] LABS: HLA-B27 Negative (.)
[2024-06-05 22:13] LABS: Anti-CCP Abs,IgG and IgA (RDL) < 20 Units (<20)
== END 2024-05-30 23:59 | disposition home or self-care (01) ==
PROVIDERS: PCP Nurse Practitioner Family; Visit Provider Nurse Practitioner Family
DX: G89.29 Other chronic pain (principal); M54.50 Low back pain, unspecified; S62.101A Fracture of unspecified carpal bone, right wrist, initial encounter for closed fracture; M25.50 Pain in unspecified joint
CPT/HCPCS: 36415; 73110; 80053; 82306; 84443; 85025; 85651; 86038; 86140; 86200; 86431; 86812

== ENCOUNTER 2024-06-15 15:06 | Emergency (ER) | payer MEDICAID, SELFPAY ==
[2024-06-15 15:15] VITALS: BP 150/97; PULSE 94; RESP 18; TEMP 37.1; O2SAT 99; BMI 35.6
[2024-06-15 15:18] VITALS: RESP 18; O2SAT 98
[2024-06-15 15:37] LABS: Coronavirus 19, PCR Not Detected (NotDetected); Influenza B, PCR Not Detected (NotDetected)
[2024-06-15 16:01] LABS: Influenza A, PCR Detected (NotDetected)
--- NOTE | 2024-06-15 16:31 | ED_ITS ---
Discharge Plan Disposition Patient Disposition: Home, Self-Care Condition: Good Prescriptions Prescriptions: No Action hydroxyzine HCl 25 mg Tablet 25 mg PO BID PRN (Reason: Anxiety) Referrals Follow up/Referrals: Carli Berman APRN [Primary Care Provider] - See instructions Activity Restrictions/Add. Instructions Additional Instructions/Restrictions: You were diagnosed with influenza A today. Take Tylenol and ibuprofen every 6 hours for pain and fever. You can also take medications such as Sudafed for sinus headaches and facial pressure. Lozenges, honey, gargling warm salt water can also help decrease any sore throat and coughing you may have. Please follow up with your primary care provider in 2-3 days. Please return to ED if your symptoms worsen, change in location, change in severity, new symptoms develop or if you become concerned for your health. Clinical Impressions Clinical Impression: Influenza A Instructions Patient Instructions: DI for Influenza -- Adult Print Language Print Language: Bulgarian Discharge ED Provider: Britt Beth General Adult HPI <Britt Beth MD - Last Filed: 06/16/24 00:38> General Chief complaint: Upper Respiratory Infection Stated complaint: fever,cough,body aches Time Seen by Provider: 06/15/24 16:40 History of Present Illness HPI narrative: Rosa Andre is a 28-year-old female presenting with multiple complaints. Patient states for the past 3 days she has had bodyaches, headache and cough with nasal congestion. Patient states she took Tylenol earlier today prior to arrival. Patient states her son has also been sick. Patient has had decreased oral intake but denies vomiting or decreased urine output. Patient denies history of asthma or other lung diseases. Patient did not receive flu vaccine. Related Data Home Medications ?Medication ?Instructions ?Recorded ?Confirmed hydroxyzine HCl 25 mg tablet 25 mg PO BID PRN Anxiety 06/15/24 06/15/24 Allergies Allergy/AdvReac Type Severity Reaction Status Date / Time Penicillins Allergy Severe Anaphylaxis Verified 08/23/23 10:22 <Michelle Gray APRN - Last Filed: > General Mode of Arrival: Ambulatory Source of Information: Patient Limitations: No Limitations Description of Symptoms (Recalled from ER Triage Doc. by RN): Pt presents for evaluation of cough, headache, and bodyaches x 3 days. PT states she took 2 tylenol at 11am [facility] <Britt Beth MD - Last Filed: 06/16/24 00:38> [facility] Medical History delivery delivered Bilateral tinnitus Syncope Post traumatic stress disorder (PTSD) History of fourth degree perineal laceration Recurrent loss Rh negative status during Surgical History History of knee surgery History of delivery Hx of cholecystectomy Family History Other Cancer Diabetes FHx: mental illness Social History Smoking Status: Current every day smoker tobacco type: cigarettes packs per day: 1 second hand exposure: Yes alcohol intake: never substance use type: denies use current occupational status: unemployed Travel in the last 8 weeks: None household members: spouse housing: apartment marital status: number of children: 2 Have you lived/traveled outside US in past 30 days?: No Contact w/someone who lives/traveled outside US past 30 days?: No Exposure to someone with infectious disease in past 14 days?: No Do you have a fever (greater than 100.4 F or 38 C)?: Yes Have you tested positive for COVID-19: No Exposed to someone with COVID-19 in past 14 days?: No Do you have a sore throat?: No Do you have a cough?: Yes Do you have any weakness?: No Do you have any diarrhea?: No Are you experiencing any unusual bleeding?: No Do you have any muscle aches/pain?: Yes Do you have any abdominal pain?: No Are you experiencing loss of taste or smell?: No <Michelle Gray APRN - Last Filed: > [facility] Disclaimer: The information contained in this section may have been updated after the patient was seen, as this information can be updated by other users. Other Medical History Have you received the Flu Vaccine for this season: No Have you received the Pneumonia Vaccine: No <Britt Beth MD - Last Filed: 06/16/24 00:38> ROS Obtained: Yes All systems reviewed & no additional complaints except as documented Physical Exam <Britt Beth MD - Last Filed: 06/16/24 00:38> General General appearance: alert and in no apparent distress Head Head exam: atraumatic Eye Eye exam: Present EOMI; Absent scleral icterus ENT ENT exam: Present mucous membranes moist Respiratory Respiratory exam: Present normal lung sounds bilaterally Cardiovascular Cardiovascular exam: Present regular rate and normal rhythm Abdominal Exam Abdominal exam: Present soft; Absent distention or tenderness Neurological Exam Neurological exam: Present alert and oriented X3 Skin Skin exam: Present warm and dry Medical Decision Making <Britt Beth MD - Last Filed: 06/16/24 00:38> Edu Inquiry Pt receiving controlled substance: No Edu was queried for this patient: No Vital Signs: 06/15/24 15:15 06/15/24 15:18 06/15/24 16:58 Temperature 98.8 F 98.8 F Temperature Source Oral Oral Pulse Rate 60 Pulse Rate [Right] 94 H Respiratory Rate 18 18 18 Blood Pressure 131/93 H Blood Pressure [Right Arm] 150/97 H Blood Pressure Mean [Right Arm] 114 Blood Pressure Source [Right Arm] Automatic Cuff Blood Pressure Position Sitting Blood Pressure Position [Right Arm] Sitting 02 Sat by Pulse Oximetry 99 98 Oxygen Delivery Method Room Air Room Air Room Air Lab Data Lab results reviewed: Yes I reviewed the patient's lab results. Lab Results 06/15/24 15:18: SARS-CoV-2 (PCR) Not detected, Influenza A Untype (PCR) Detected A, Influenza Type B (PCR) Not detected Orders (Tests/Meds): ORDERS Category Date Time Status Rapid PCR Covid and Flu A/B Stat Lab 06/15/24 15:18 Completed Medical Decision Narrative: In summary, this is a 28-year-old female presenting with flulike symptoms. Differential diagnosis includes but is not limited to, COVID, influenza, viral URI, pneumonia, among others. Patient evaluated with respiratory swab. Patient has clear lung sounds bilaterally, no indication to perform CXR at this time. Patient afebrile on arrival, no Tylenol or ibuprofen necessary at this time. Respiratory swab significant for influenza A. Patient has had symptoms for the past 3 days, however we discussed Tamiflu to which patient refused. Recommended Tylenol and ibuprofen as well as fluids and other symptomatic care at home. Patient was in agreement with this plan. Patient discharged in stable condition. Britt Beth MD <Michelle Gray, INTERN ARCHITECT - Last Filed: > Medical Records Screening: Per USPSTF and CDC recommendations, given the prevalence of disease in our region, it is our hospital?s policy to screen for HIV and viral Hepatitis for all patients aged 18 and over and those with ongoing risk factors. Vital Signs: 06/15/24 15:15 06/15/24 15:18 06/15/24 16:58 Temperature 98.8 F 98.8 F Temperature Source Oral Oral Pulse Rate 60 Pulse Rate [Right] 94 H Respiratory Rate 18 18 18 Blood Pressure 131/93 H Blood Pressure [Right Arm] 150/97 H Blood Pressure Mean [Right Arm] 114 Blood Pressure Source [Right Arm] Automatic Cuff Blood Pressure Position Sitting Blood Pressure Position [Right Arm] Sitting 02 Sat by Pulse Oximetry 99 98 Oxygen Delivery Method Room Air Room Air Room Air Lab Data Lab Results 06/15/24 15:18: SARS-CoV-2 (PCR) Not detected, Influenza A Untype (PCR) Detected A, Influenza Type B (PCR) Not detected Orders (Tests/Meds): ORDERS Category Date Time Status Rapid PCR Covid and Flu A/B Stat Lab 06/15/24 15:18 Completed Critical Care <Britt Beth MD - Last Filed: 06/16/24 00:38> Critical Care Time Critical Care Time: No
[2024-06-15 16:58] VITALS: BP 131/93; PULSE 60; RESP 18; TEMP 37.1; O2SAT 100
== END 2024-06-15 16:58 | disposition home or self-care (01) ==
PROVIDERS: Emergency Provider Student in an Organized Health Care Education/Training Program; PCP Nurse Practitioner Family
DX: J10.1 Influenza due to other identified influenza virus with other respiratory manifestations (principal); R51.9 Headache, unspecified; M79.10 Myalgia, unspecified site; R05.9 Cough, unspecified; R09.81 Nasal congestion; F17.210 Nicotine dependence, cigarettes, uncomplicated
CPT/HCPCS: 87636; 99283

== ENCOUNTER 2024-08-25 12:17 | Outpatient (CLI) | payer MEDICAID, SELFPAY ==
--- NOTE | 2024-08-25 08:30 | US_ITS ---
PROCEDURE: US TRANSVAGINAL CLINICAL INDICATION: needs shahab for IUD placement COMPARISON: US US OB <= 14 WEEKS FETUS from 11/08/2021 FINDINGS: Transvaginal sonographic images of the pelvis were obtained. UTERUS: 10.0cm x 5.4cmx 4.6 cm anteverted with a combined endometrial thickness of 6mm. A scar is present in the anterior lower uterine segment. There is an IUD present within the uterine cavity in the correct position. There is a fibroid in the left posterior uterus measuring 2.7 cm x 2.4 cm x 2.5 cm. LEFT OVARY: 4.7 cmx3.7 cmx4.1cm with a volume of 37.1ml. There are at least 3 follicles in the left ovary Follicle 1. 3.0 cm Follicle 2. 2.4 cm Follicle 3. 2.1 cm RIGHT OVARY: 3.7 cmx 2.9 cmx2.0cm with a volume of 11ml. There is a collapsing follicle in the right ovary measuring 1.0 cm Both ovaries are seen and appear normal. Doppler flow to both ovaries are seen. There is no fluid in the cul-de-sac. IMPRESSION: 1. Anteverted, bulky uterus. The endometrium is thin. There is a posterior 2.7 cm well-circumscribed fibroid. 2. There is an IUD within the uterine cavity in the correct position. 3. Left ovary contains at least 3 follicles, the largest is 3.0 cm. Right ovary appears normal. 4. No fluid in the cul-de-sac. Dictated by: Osbaldo Moses MD 08/25/2024 13:48 Osbaldo Moses MD in OV 08/25/2024 13:48
== END 2024-08-25 23:59 | disposition home or self-care (01) ==
LOC: RAD 12:17
PROVIDERS: PCP Nurse Practitioner Family; Visit Provider Obstetrics & Gynecology
DX: O34.592 Maternal care for other abnormalities of gravid uterus, second trimester (principal); D25.9 Leiomyoma of uterus, unspecified; Z3A.14 14 weeks gestation of pregnancy
CPT/HCPCS: 76830

== ENCOUNTER 2024-09-23 13:06 | Outpatient (CLI) | payer MEDICAID, SELFPAY ==
--- NOTE | 2024-09-23 13:13 | XR_ITS ---
FINAL REPORT CLINICAL HISTORY: Right knee pain COMPARISON: 12/05/2022 FINDINGS: RIGHT KNEE Three views demonstrate no acute fracture or dislocation. The joint spaces appear normal. No acute soft tissue abnormality is seen. IMPRESSION: No acute bony abnormality. Reviewed, Interpreted and Dictated by Zackery Serrano MD Transcribed by Whitney Lancaster Authenticated and [facility]
--- OUTSIDE RECORDS SUMMARY | 2024-09-23 13:22 | XMS_ITS | Clinical Summary ---
Author Organization Healthcare Address [address] [id number] Care Team Providers Care Asp Net Mvc Developer Name Role Phone Concha Vivar MD Primary Care Provider [phone] Allergies Active Allergy Reactions Criticality Noted Date Comments Penicillins Swelling,Unknown - P atient states they do not know rxn details High 07/10/2014 Medications Vit-Fe Fumarate-FA ( 1+1 PO) Take by mouth. Active nicotine (Nicoderm CQ) 21 MG/24HR patch Place 1 patch on the skin 1 (one) time each day at the same time. 30 patch 3 1 Active sertraline (Zoloft) 50 MG tablet Take 50 mg by mouth 1 (one) time each day. 1 Active ondansetron (Zofran) 8 MG tablet Take 1 tablet (8 mg total) by mouth 2 (two) times a day if needed for nausea. 1 Active docusate sodium (Colace) 250 MG capsuleIndication s:Constipation, unspecified constipation type Take 1 capsule (250 mg total) by mouth 2 (two) times a day. 60 capsule 3 1 Active promethazine (Phenergan) 12.5 MG tabletIndications :35 weeks gestation of Take 1 tablet (12.5 mg total) by mouth every 6 (six) hours if needed for nausea or vomiting. 20 tablet 3 1 Active norelgestromin-et hinyl estradiol (Xulane) 150-35 MCG/24HR Apply 1 patch each week for 3 weeks, then remove for 1 week. 3 patch 12 2 Active Active Problems Problem Noted Date Diagnosed Date Finger infection 03/03/2021 Heartburn during in third trimester 11 / Diet controlled gestational diabetes mellitus (GDM) in third trimester 01/31/2021 Assessment & Plan (03/09/2021 12:07 PM EST): - says fastings are between 90-100 and PP are in the 120s. Doesn't have log. Log provided - hasn't had diabetic education because she needs to download zoom. - growth US 02/17: EFW 75%, AC 98% - has Growth US on 03/21 - continue PNV - RTC for NST in 1 week Assessment & Plan (01/31/2021 12:22 PM EDT): - failed 1 hour, doesn't know when she will be able to do 3 hour. Will treat as A1DM and record FSBG. - Log given to check fastings and 2 hour postprandials - diabetes education contacted - supplies sent to pharmacy - growth US already scheduled. - will return in 1 week to eval FSBG Choroid plexus cysts, , affecting care of mother, antepartum 11/22/2020 Fibroid 11/22/2020 Smoker 11/17/2020 Encounter for supervision of normal in third trimester 11/17/2020 Assessment & Plan (01/31/2021 12:17 PM EDT): - continue PNV - S>D, ultrasound 02/17 - s/p rhogam Assessment & Plan (01/17/2021 10:58 AM EDT): - can't do 3 hour glucola this morning - will return within the week - Flu shot, Tdap, and rhogam today - continue PNV - normal limited anatomy scan today on prelim read - growth US ordered at 32 weeks Immunizations Immunization Administration Dates Next Due HPV, Quadrivalent 08/16/2012, 2,01/31/2011,2009 Hep A, ped/adol, 2 dose 01/04/2012 Influenza, injectable, quadr ivalent, preservative free 01/17/2021,01/25/2018,05/09/2017 Influenza, live, intranasal, quadrivalent 01/21/2013,01/04/2012 Influenza, seasonal, injectable 01/31/2011 Influenza, seasonal, injecta ble, preservative free 02/21/2012 Rho (D) Immune Globulin 01/17/2021 Tdap 01/17/2021,12/02/2008 Varicella 12/02/2008 Family History Medical History Relation Name Comments enlarged aorta Brother Relation Name Status Comments Brother Social History Tobacco Use Types Packs/Day Years Used Date Smoking Tobacco: Some Days Cigarettes Smokeless Tobacco: Never Tobacco Cessation:Ready to Q uit: No; Counseling Given: No Alcohol Use Standard Drinks/Week Comments Never 0 (1 standard drink = 0.6 oz pur e alcohol) Comments No Sex and Gender Information Value Date Recorded Sex Assigned at Not on file Legal Sex Female 6:44 PM EDT Gender Identity Not on file Sexual Orientation Not on file Last Filed Vital Signs Vital Sign Reading Time Taken Comments Blood Pressure 132/92 07/04/2021 2:56 PM EDT Pulse 80 07/04/2021 2:56 PM EDT Temperature - - Respiratory Rate - - Oxygen Saturation - - Inhaled Oxygen Concentration - - Weight 100 kg (220 lb 7.4 oz) 07/04/2021 2:56 PM EDT Height 167.6 cm (5' 6 ) 05/09/2017 10:06 AM EST Body Mass Index 35.58 05/09/2017 10:06 AM EST Plan of Treatment Health Maintenance Due Date Last Done Comments [facility]-Depression Screening 1996 [facility]-/Child/Adol SDOH Screenings 1996 [facility]-Varicella Vaccines (2 of 2 - 2-dose childhood series) 02/24/2009 12/02/2008 [facility]-Hepatitis A Vaccines (2 of 2 - 2-dose series) 07/03/2012 01/04/2012 [facility]- SDOH Screenings 2014 [facility]-Adult SDOH Screenings 2014 [facility]-Hepatitis B Vaccines (1 of 3 - 19+ 3-dose series) 10/22/2015 [facility]-Pap Smear 2017 [id number] Vaccine ( - season) 2023 05/01/2021, 10/26/2020, 09/30/2020 [facility]-Influenza Vaccine (Season Ended) 2024 01/17/2021, 01/25/2018, 05/09/2017, Additional history exists [facility]-DTaP,Tdap,and Td Vaccines (3 - Td or Tdap) 01/17/2031 01/17/2021, 12/02/2008 [facility]-Zoster Vaccines (1 of 2) 2046 12/02/2008 HPV Vaccines Completed 08/16/2012, 12/16, 01/31/2011, Additional history exists [facility]-HIB Vaccines Aged Out No longer e ligible based on patient's age to complete this topic [facility]-IPV Vaccines Aged Out No longer e ligible based on patient's age to complete this topic [facility]-Pneumococcal Vaccine: Pediatrics (0 to 5 Years) and At-Risk Patients (6 to 49 Years) Aged Out No longer eligible based on patient's age to complete this topic [facility]-Rotavirus Vaccines Aged Out No lo nger eligible based on patient's age to complete this topic Insurance MEDICAID Care Teams Asp Net Mvc Developer Relationship Specialty Start Date End Date Concha Vivar MD [address] [place] [address] [id number] PCP - General 08/27/20
== END 2024-09-23 23:59 | disposition home or self-care (01) ==
LOC: RAD 13:07
PROVIDERS: Visit Provider Physician Assistant
DX: M25.561 Pain in right knee (principal)
CPT/HCPCS: 73562

== ENCOUNTER 2024-09-23 14:04 | Outpatient (RCR) | payer MEDICAID, SELFPAY | END 2024-09-23 23:59 | disposition home or self-care (01) | LOC: PT 14:04 | PROVIDERS: Visit Provider Physician Assistant | DX: M25.561 Pain in right knee (principal) | CPT/HCPCS: 97760 ==

== ENCOUNTER 2024-10-07 07:57 | Outpatient (CLI) | payer MEDICAID, SELFPAY ==
--- NOTE | 2024-10-07 08:00 | MR_ITS ---
FINAL REPORT TECHNIQUE: Multiplanar MR right knee without contrast CLINICAL HISTORY: right knee pain. knee instability with falling frequently. FINDINGS: Articular cartilage: No focal defect Marrow signal: Unremarkable Joint fluid: Small. Menisci: Normal morphology without tear Ligaments: Collateral, cruciate and patellofemoral ligaments intact Tendons: Quadriceps and patellar tendon normal A septated cystic mass is seen along the anterior margin of the medial tibial plateau measuring 12 x 11 x 7 mm which abuts the meniscus. Although, no meniscal tear is seen. This is considered a ganglion cyst. Edema in the upper popliteal fossa is likely related to ruptured Verdugo's cyst. IMPRESSION: No meniscal or ligamentous injury. Cystic mass along the anterior horn of the medial meniscus attributed to ganglion cyst. Edema in the popliteal fossa likely related to ruptured Verdugo's cyst. Reviewed, Interpreted and Dictated by Ashley White MD Transcribed by Mady Elise Authenticated and [facility]
--- OUTSIDE RECORDS SUMMARY | 2024-10-07 08:00 | XMS_ITS | Clinical Summary ---
Author Organization Healthcare Address [address] [id number] Care Team Providers Care Cracking Unit Operator Name Role Phone Concha Vivar MD Primary Care Provider [phone] Allergies Active Allergy Reactions Criticality Noted Date [...] 19+ 3-dose series) 10/22/2015 [facility]-Pap Smear 2017 [id number] Vaccine ( - season) 2023 05/01/2021, 10/26/2020, [...] complete this topic Insurance MEDICAID Care Teams Cracking Unit Operator Relationship Specialty Start Date End Date Concha Vivar MD [address] [place] [address] PCP - General 08/27/20
== END 2024-10-07 23:59 | disposition home or self-care (01) ==
LOC: RAD 07:58
PROVIDERS: Visit Provider Physician Assistant
DX: M66.0 Rupture of popliteal cyst (principal); M67.461 Ganglion, right knee; M25.461 Effusion, right knee; M23.91 Unspecified internal derangement of right knee
CPT/HCPCS: 73721

== ENCOUNTER 2024-10-15 09:36 | Outpatient (CLI) | payer MEDICAID, SELFPAY ==
--- OUTSIDE RECORDS SUMMARY | 2024-10-15 09:40 | XMS_ITS | Clinical Summary ---
Author Organization Healthcare Address [address] [id number] Care Team Providers Care City Superintendent Name Role Phone Concha Vivar MD Primary Care Provider [phone] Allergies Active Allergy Reactions Criticality Noted Date [...] 19+ 3-dose series) 10/22/2015 [facility]-Pap Smear 2017 [id number] Vaccine ( - season) 2023 05/01/2021, 10/26/2020, [...] complete this topic Insurance MEDICAID Care Teams City Superintendent Relationship Specialty Start Date End Date Concha Vivar MD [address] [place] [address] PCP - General 08/27/20
[2024-10-15 09:41] VITALS: BMI 37.0
[2024-10-15 10:10] LABS: Hematocrit 45.4 % (37.0-47.0); Hemoglobin 14.8 g/dL (12.2-16.2); Immature Granulocytes % 0.4 %; Mean Corpuscular HGB Conc 32.6 g/dL (31.8-35.4); Mean Corpuscular Hemoglobin 27.6 pg (27.0-31.2); Mean Corpuscular Volume 84.5 fl (81-99); Nucleated Red Blood Cells % 0 %; Platelet Count 227 K/mm3 (142-424); Red Blood Count 5.37 M/mm3 (4.20-5.40); Red Cell Distribution Width-SD 45.1 fL; White Blood Count 10.2 K/mm3 (4.8-10.8)
[2024-10-15 10:25] LABS: HCG Qualitative, Serum Negative (Negative)
[2024-10-15 10:26] LABS: Anion Gap 13.7 mEq/L (5-15); Blood Urea Nitrogen 8 mg/dl (7-17); Calcium 9.7 mg/dl (8.4-10.2); Carbon Dioxide 24 mmol/L (22.0-30.0); Chloride 104 mmol/L (98-107); Creatinine Clearance Estimated 187 mL/min (50-200); Creatinine,Serum 0.70 mg/dl (0.52-1.04); Estimated Glomerular Filt Rate 100 ml/min (>60); GFR (African American) 121 ML/MIN (>60); Potassium 3.7 mmoL/L (3.5-5.1); Sodium 138 mmol/L (136-145)
[2024-10-15 13:52] LABS: Glucose 95 mg/dl (74-100)
== END 2024-10-15 23:59 | disposition home or self-care (01) ==
LOC: PREOP 09:38
PROVIDERS: PCP Physician Assistant; Visit Provider Obstetrics & Gynecology
DX: Z01.812 Encounter for preprocedural laboratory examination (principal)
CPT/HCPCS: 80048; 84703; 85025

== ENCOUNTER 2024-10-22 08:12 | Day surgery (SDC) | payer MEDICAID, SELFPAY ==
[2024-10-16 13:42] VITALS: BMI 37.0
[2024-10-22] VITALS (10 sets, daily range): BP systolic 119–146; BP diastolic 71–95; PULSE 72–97; RESP 16–20; TEMP 36.2–36.9; O2SAT 94–98
[2024-10-22] MEDS: LACTATED RINGERS 1000ML 1,000 ML 100 ML IV (09:14)
--- NOTE | 2024-10-22 09:35 | P.PNANES_ITS ---
[facility] Disclaimer: The information contained in this section may have been updated after the patient was seen, as this information can be updated by other users. Medical History delivery delivered Bilateral tinnitus Syncope Post traumatic stress disorder (PTSD) History of fourth degree perineal laceration Recurrent loss Rh negative status during Surgical History History of knee surgery left History of delivery Hx of cholecystectomy Family History Other Cancer Diabetes FHx: mental illness Social History Smoking Status: Current every day smoker tobacco type: cigarettes packs per day: 1 second hand exposure: Yes alcohol intake: never substance use type: denies use current occupational status: unemployed Travel in the last 8 weeks?: None household members: spouse housing: apartment marital status: number of children: 2 Have you lived/traveled outside US in past 30 days?: No Contact w/someone who lives/traveled outside US past 30 days?: No Exposure to someone with infectious disease in past 14 days?: No Do you have a fever (greater than 100.4 F or 38 C)?: No Have you tested positive for COVID-19?: No Exposed to someone with COVID-19 in past 14 days?: No Do you have a sore throat?: No Do you have a cough?: No Do you have any weakness?: No Do you have any diarrhea?: No Are you experiencing any unusual bleeding?: No Do you have any muscle aches/pain?: No Do you have any abdominal pain?: No Are you experiencing loss of taste or smell?: No [facility] Anesthesia Checklist Patient Identification Patient Identification: Arm Band Structural Data Admitted From: Home Planned Operative Procedure/s: Laparoscopic Bilateral Salpingectomy Consent for Planned Operative Procedure(s) Verified: Yes Verified Documents: Surgical Consent and History and Physical NPO Status Verified Time NPO: 00:00 Additional verifications Anesthesia Reactions: No Hx Blood Transfusions: No Blood Transfusion Reaction: No Airway Assessment Mallampati Score:: Class II C-Spine Mobility Assessed: Yes TMJ Mobility Assessed: Yes Dentition: Edentulous Neurological Assessment Level of Consciousness: Awake, Alert and Appropriate Anesthesia Plan Anesthesia Risk discussed: Yes Anesthesia Plan: Verified ASA Class: II Anesthesia Type: General
[2024-10-22] MEDS: LIDOCAINE 1% W/EPI 1:100,000 20ML VIAL 40 ML (10:16)
--- NOTE | 2024-10-22 11:17 | EXP.ANES.I ---
[facility] Anesthesia Record Part I Anesthesia Record I Intake, IV Amount: 700 Hydration: Adequate Estimated blood loss (mL): 10 Urine output (mL): 0 Blood Products used (#): none Blood Pressure: 142/92 SaO2: 95 Pulse Rate: 94 Airway Patency: Patent Respiratory Rate: 16 Temperature: 98.2 F Patient is:: Drowsy and Stable Stable to PACU at:: 11:15
--- NOTE | 2024-10-22 11:19 | EXP.OP.NOTE ---
Date of procedure: 10/22/24 Pre-op Diagnosis:: 1. Desires sterilization 2. Chronic pelvic pain Post-op Diagnosis:: 1. Desires sterilization 2. Chronic pelvic pain 3. Endometriosis Procedure performed:: 1. Diagnostic laparoscopy 2. Lysis of adhesions 3. Laparoscopic bilateral salpingectomy Surgeon:: Demi Howell DO ACCOUNTS PAYABLE PROCESSOR:: Agustin Lugo Anesthesia: GETA Estimated blood loss (mL): 10 Operative findings:: 1. Bimanual examination revealed an anteverted 8-week size uterus with smooth contour without any adnexal masses. 2. Laparoscopic exam revealed normal-appearing uterus, ovaries, fallopian tubes and liver. There were Mp-Masters windows noted in the posterior cul-de-sac. Endometriosis powder burn lesions on the bladder peritoneum. Endometriosis lesions on the pelvic sidewalls. The uterus was enlarged and boggy and suggestive of adenomyosis. 3. There were adhesions noted extending from the left colon to the left pelvic sidewall and a strand of adhesion extending from the omentum to the anterior abdominal wall at the umbilicus. There were filmy adhesions in the right adnexa. Operative note:: Rosa Andre is a 28-year-old -0-3-3 who desires permanent sterilization. She is currently using an IUD for sterilization and has previously failed the Nexplanon secondary to weight gain and irregular menses. Her IUD was placed 08/14/2024. She complains of irregular bleeding with it. She is considering IUD removal but we elected to leave it in situ for few more months. Regardless she desired to proceed with bilateral salpingectomy and diagnostic laparoscopy for evaluation of her chronic pelvic pain IUD strings were not visualized on exam. Review of transvaginal ultrasound from 08/25/2024 following IUD placement shows IUD in the uterine cavity in the correct position. On 08/26/2024 IUD strings were noted. The patient was taken to the operating room where general anesthesia was obtained and noted to be adequate. SCDs were placed for thromboembolism prophylaxis and found to be working. The patient was placed in the dorsal lithotomy position using yellowfin stirrups. Timeout verified the correct patient and procedure. The patient was prepped and draped in a usual sterile fashion. A catheter was used to drain her bladder. An acorn uterine manipulator was placed and my top gloves were removed. 10mL of Lidocaine with epinepherine was injected infraumbilically and a scalpel was used to make a 5 mm infraumbilical incision with the assistance from a hemostat. The skin was tented and Optiview blunt trocar was introduced into the abdomen in the usual fashion. CO2 gas was connected with an initial pressure of 6 mmHg noted. Pneumoperitoneum was created to a pressure of 15 mmHg. The laparoscopic camera was inserted and a quick survey of the abdomen revealed grossly normal anatomy. The uterus appeared to be anteverted with a normal size shape and contour. The patient was placed in Trendelenburg. 10mLs of local anesthetic was injected and a 5mm incision was then made in the right lower quadrant with careful attention to avoid the rectus muscles and vasculature and under direct laparoscopic visualization a blunt trocar was introduced into the abdominal cavity. This process was repeated on the left side with an 8 mm trocar. Diagnostic laparoscopy revealed Mp-Masters window in the posterior cul-de-sac primarily on the right side. It also had several small powder burn lesions in a cluster on the right anterior pelvic sidewall. This was lateral to the bladder and just superior to the adnexa. These were primarily on the peritoneum. There were also thin filmy adhesions extending from the ovary, fallopian tubes to the anterior abdominal wall. There are adhesions on the contralateral left side as well. There was a left-sided corpus luteal cyst that was ruptured during the surgery on the left ovary. Images were obtained of all of this. Without using any cautery the right endometriosis adhesions were excised sharply. The bladder peritoneum was examined and images were obtained but it did not believe it to be safe and without risk of injury to the bladder to excise these. Will discuss postop medication management The fallopian tubes were identified on the cornu of the uterus and followed out to the ovaries which revealed grossly appearing anatomy. Images were obtained. A grasper was used to elevate the left fallopian tube. The Ligasure was used to grasp the fimbriated end of the fallopian tube, ensuring complete removal of the fimbriae, it was clamped, coagulated and transected. This process was repeated serially working towards the uterus to allow complete removal of the fallopian tube. Careful attention was given to transected the Mesosalpinx proximal to the fallopian tube. The fallopian tube was removed from the abdominal cavity and passed off the operative field to be sent to pathology. Hemostasis was noted. Attention was then turned to the right fallopian tube and the process was repeated. Hemostasis was noted and the tube was removed along with the trocar and handed off the operative field to be sent to pathology. Pneumoperitoneum reduced, and all ports removed. The 3 abdominal incisions were closed with a single simple interrupted suture using 4-0 Monocryl. Dermabond was applied to each skin incision. The [place] uterine manipulator was removed. All counts were correct x2, per nursing. The patient was extubated, stable, and transferred to the PACU. She will be discharged after meeting all DC criteria to include voiding, ambulating and tolerating PO independently. Condition: stable Disposition: same day Specimens:: 1. Bilateral fallopian tubes 2. Peritoneal biopsy Complications:: None
--- NOTE | 2024-10-22 11:50 | SUR.PHASEI ---
1146- detailed report given to connorrn in post op. VSS, dressings CDI.
--- NOTE | 2024-10-23 12:28 | EXP.ANES.II ---
[facility] Anesthesia Record Part II Anesthesia Record Part II Discharge Time: 11:45 Destination: Surgical Day Care (OP Surgery) PACU nurse assessment reviewed?: Yes Patient Condition:: Good Anesthesia Complications:: None Swallowing reflex intact?: Yes Airway Patency: Patent Cyanosis?: No Blood Pressure: 129/79 SaO2: 95 Respiratory Rate: 16 Pulse Rate: 97 Temperature: 98.2 F Mental Status: Alert & Oriented Pain level:: 0 Nausea and/or vomitting:: None Intake, IV Amount: 0 Hydration: Adequate
[2024-10-23 12:29] VITALS: BP 129/79; PULSE 97; RESP 16; TEMP 36.8; O2SAT 95
== END 2024-10-22 12:20 | disposition home or self-care (01) ==
PROVIDERS: PCP Physician Assistant; Visit Provider Obstetrics & Gynecology
PROC: (CPT 58661; principal; 2024-10-22 09:45)
DX: Z30.2 Encounter for sterilization (principal); N80.399 Endometriosis of the pelvic peritoneum, other specified sites, unspecified depth; N83.12 Corpus luteum cyst of left ovary; N80.351 Endometriosis of the right pelvic sidewall, unspecified depth; N83.8 Other noninflammatory disorders of ovary, fallopian tube and broad ligament; N73.6 Female pelvic peritoneal adhesions (postinfective); K66.0 Peritoneal adhesions (postprocedural) (postinfection); R10.2 Pelvic and perineal pain; Z97.5 Presence of (intrauterine) contraceptive device; F17.210 Nicotine dependence, cigarettes, uncomplicated; E66.3 Overweight; F43.10 Post-traumatic stress disorder, unspecified; Z88.0 Allergy status to penicillin; Z79.899 Other long term (current) drug therapy; Z98.891 History of uterine scar from previous surgery; Z56.0 Unemployment, unspecified; Z68.37 Body mass index [BMI] 37.0-37.9, adult; Z91.011 Allergy to milk products
CPT/HCPCS: 49321; 58661; J1100; J2003; J2004; J2250; J2405; J2704; J3010; J7120

== ENCOUNTER 2025-01-13 14:11 | Outpatient (CLI) | payer MEDICAID, SELFPAY ==
--- NOTE | 2025-01-13 14:12 | XR_ITS ---
FINAL REPORT CLINICAL HISTORY: right knee pain FINDINGS: RIGHT KNEE Three views were obtained. There is no fracture or dislocation. The joint spaces appear normal. No soft tissue abnormality is identified. IMPRESSION: No acute process. Reviewed, Interpreted and Dictated by Zackery Serrano MD Transcribed by Elise Will Authenticated and [facility]
--- OUTSIDE RECORDS SUMMARY | 2025-01-13 14:13 | XMS_ITS | Clinical Summary ---
Author Organization [facility] Address [address] [id number] Care Team Providers Care Powerhouse Electrician Apprentice Name Role Phone Concha Vivar MD Primary Care Provider [phone] Allergies Active Allergy Reactions Criticality Noted Date [...] Active Problems Problem Noted Date Diagnosed Date Diet controlled gestational diabetes mellitus (GDM) in [...] - growth US ordered at 32 weeks Resolved Problems Problem Noted Date Diagnosed Date Resolved Date Finger infection 03/03/2021 01/04/2025 Heartburn during in third trimester 03/03/2001/04/2025 Immunizations Immunization Administration Dates Next Due HPV, [...] 19+ 3-dose series) 10/22/2015 [facility]-Pap Smear 2017 [id number] Vaccine ( season) 2024 05/01/2021, 10/26/2020, 09/30/2020 [facility]-Influenza Vaccine (#1) 12/15/202401/17, 01/25/2018, 05/09/2017, Additional history exists [facility]-DTaP,Tdap,and Td [...] patient's age to complete this topic Insurance [employer] Care Teams Powerhouse Electrician Apprentice Relationship Specialty Start Date End Date Concha Vivar MD [address] [place] [address] PCP - General 08/27/20
--- OUTSIDE RECORDS SUMMARY | 2025-01-13 14:13 | XMS_ITS | Clinical Summary ---
Author Organization [facility] Address [address] [place] [address] Care Team Providers Care Photographic Intelligence Officer Name Role Phone Provider, No Known Primary Care Provider Unavail able Allergies Active Allergy Reactions Criticality Noted Date Comments Penicillins Swelling 07/27/2020 Medications No known medications Active Problems No known active problems Social History Tobacco Use Types Packs/Day Years Used Date Smoking Tobacco: Some Days Cigarettes Tobacco Cessation:Ready to Q uit: Not Asked; Counseling Given: Not Answered Comments:1-3 PER DAY Abuse Screen Answer Date Recorded Unsafe at Home or Work/School Not on file Feels Threatened by Someone? Not on file 03/2023 Does Anyone Keep You from Co ntacting Others or Doint Things Outside the Home? Not on file 01/25/2023 Physical Sign of Abuse Present Not on file 1 Housing Stability Answer Date Recorded Current Living Arrangements Not on file 01/14 Potentially Unsafe Housing Conditions Not on marie e 01/25/2023 Family and Community Support Answer Jad e Recorded Help with Day-to-Day Activities Not on file 01/25/2023 Lonely or Isolated Not on file 01/25/2023 Employment Answer Date Recorded Do you want help finding or keeping work or a stan b? Not on file 01/25/2023 Disabilities Answer Date Recorded Concentrating, Remembering, or Making Decisions Difficulty Not on file 01/25/2023 Doing Errands Independently Difficulty Not on fi le 01/25/2023 Education Answer Date Recorded Help with school or training? Not on file Preferred Language Not on file 01/25/2023 Comments Unknown Sex and Gender Information Value Date Recorded Sex Assigned at Not on file Legal Sex Female 2:43 PM EDT Gender Identity Not on file Sexual Orientation Not on file Last Filed Vital Signs Vital Sign Reading Time Taken Comments Blood Pressure 120/82 2020 3:27 PM EDT Pulse - - Temperature - - Respiratory Rate - - Oxygen Saturation - - Inhaled Oxygen Concentration - - Weight 88.5 kg (195 lb) 2020 3:27 PM EDT Height - - Body Mass Index - - Plan of Treatment Health Maintenance Due Date Last Done Comments Annual Gynecologic Pelvic and Breast Exam 1996 ANNUAL PHYSICAL 2020 INFLUENZA VACCINE 11/14/2024 12/28/2022, , 01/17/2021, Additional history exists TDAP/TD VACCINES (3 - Td or Tdap) 01/17/2031 01/17/2021, 12/02/2008 CHLAMYDIA SCREENING Discontinued 2020 HEPATITIS C SCREENING Completed 2020 Pneumococcal Vaccine 0-49 Aged Out No longer eligible based on patient's age to complete this topic Procedures Procedure Name Priority Date/Time Associated Diagnosis Comments CHLAMYDIA TRACHOMATIS, NEISSERIA GONORRHOEAE, PCR W/ CONFIRMATION Routine 2020 4:10 PM EDT care, subsequent , second trimester OBSTETRIC PANEL Routine 2020 4:10 PM EDT care, subsequent , second trimester from Last 3 Months or Most Recently Relevant to Health Maintenance Results * (ABNORMAL) Obstetric Panel (2020 4:10 PM EDT) Hepatitis B Surface Ag Negative Negative [facility] Hep C Virus Ab <0.1 0.0 - 0.9 s/co ratio [facility] Comment: Negative: < 0.8 Indeterminate: 0.8 - 0.9 Positive: > 0.9 The CDC recommends that a positive HCV antibody result be followed up with a HCV Nucleic Acid Amplification test (142308). RPR Non Reactive Non Reactive [facility] Rubella Antibodies, IgG 2.09 Immune >0.99 index [facility] Comment: Non-immune <0.90 Equivocal 0.90 - 0.99 Immune >0.99 ABO Type O [facility] Rh Factor Negative [facility] Comment: Please note: Prior records for this patient's ABO / Rh type are not available for additional verification. Antibody Screen Negative Negative [facility] WBC 11.4(H) 3.4 - 10.8 x10E3/uL [facility] RBC 4.68 3.77 - 5.28 x10E6/uL [facility] Hemoglobin 13.8 11.1 - 15.9 g/dL [facility] Hematocrit 40.6 34.0 - 46.6 % [facility] MCV 87 79 - 97 fL [facility] MCH 29.5 26.6 - 33.0 pg [facility] MCHC 34.0 31.5 - 35.7 g/dL [facility] RDW 13.4 11.7 - 15.4 % [facility] Platelets 254 150 - 450 x10E3/uL [facility] Neutrophil Rel % 67 Not Estab. % [facility] Lymphocyte Rel % 21 Not Estab. % [facility] Monocyte Rel % 6 Not Estab. % [facility] Eosinophil Rel % 5 Not Estab. % [facility] Basophil Rel % 0 Not Estab. % [facility] Neutrophils Absolute 7.6(H) 1.4 - 7.0 x10E3/uL [facility] Lymphocytes Absolute 2.4 0.7 - 3.1 x10E3/uL [facility] Monocytes Absolute 0.7 0.1 - 0.9 x10E3/uL [facility] Eosinophils Absolute 0.6(H) 0.0 - 0.4 x10E3/uL [facility] Basophils Absolute 0.0 0.0 - 0.2 x10E3/uL [facility] Immature Granulocyte Rel % 1 Not Estab. % [facility] Immature Grans Absolute 0.1 0.0 - 0.1 x10E3/uL [facility] Blood 2020 4:10 PM EDT 2020 Narrative [facility] ([facility]) - 10/24/2020 6:39 AM EDT Performed at: 01 - [facility] [id number] Teaching Specialists: Brodie Weldon PhD, Phone: [phone] Patient Fasting: N us Katiana Bush APRN LAB BLOOD ORDERABLES Final Result [facility] ([facility]ATORY) [address] [place] [address], [facility] [address] [place] [address], * Chlamydia trachomatis, Neisseria gonorrhoeae, PCR w/ confirmation - Urine, Urine, Clean Catch (2020 4:10 PM EDT) Chlamydia trachomatis, BENJI Negative Negative [facility] Neisseria gonorrhoeae, BENJI Negative Negative [facility] Urine Urine specimen collection, clean catch / Unknown 2020 4:10 PM EDT 2020 Comment:INA ANDINO- [id number] Narrative [facility] (AMBUL[facility]ORY) - 10/24/2020 6:39 AM EDT Performed at: 03 - [address] [id number] Teaching Specialists: Kyle Collier MD, Phone: [phone] Patient Fasting: N Katiana Bush APRN MICROBIOLOGY - GENERAL ORD ERABLES Final Result [facility] [address] [place] [address], [facility] [address] [place] [address], from Last 3 Months or Most Recently Relevant to Health Maintenance Insurance [facility] MEDICAID [employer] Care Teams Photographic Intelligence Officer Relationship Specialty Start Date End Date Provider, [place] [address] PCP - General 10/21/20
== END 2025-01-13 23:59 | disposition home or self-care (01) ==
LOC: RAD 14:12
PROVIDERS: Visit Provider Physician Assistant
DX: M25.561 Pain in right knee (principal)
CPT/HCPCS: 73562

== ENCOUNTER 2025-01-13 14:59 | Outpatient (RCR) | payer MEDICAID, SELFPAY | END 2025-01-13 23:59 | disposition home or self-care (01) | LOC: PT 14:59 | PROVIDERS: Visit Provider Physician Assistant | DX: S83.92XA Sprain of unspecified site of left knee, initial encounter (principal) | CPT/HCPCS: 97760 ==